=== PATIENT | female | born 1970 | race African-American/Black ===

== ENCOUNTER 2019-05-15 00:39 | Inpatient (IN) ==
[2019-05-15] MEDS ORDERED: ONDANSETRON INJ 2 MG/ML 2 ML VIAL IV STA (01:06)
[2019-05-15] MEDS ORDERED: SODIUM CHLORIDE 0.9% 1000ML 1,000 ML IV ONE ×2 (01:06→02:42)
[2019-05-15 02:42] LABS: Alanine Aminotransferase 19 U/L (12-78); Albumin Level 3.6 gm/dl (3.4-5.0); Aspartate Aminotransferase 32 U/L (15-37); BUN Creatinine Ratio 19.1 (10-20); Blood Urea Nitrogen 26 mg/dl (7-18); Calcium 9.8 mg/dl (8.5-10.1); Carbon Dioxide 27 mmol/L (21-32); Chloride 90 mmol/L (98-107); Creatinine Clr Calc Pharmacy 58.4 ml/min; Est GFR (African American) 54.4; Glucose 175 mg/dl (70-99); Lipase 393 U/L (73-393); Potassium 3.3 mmol/L (3.5-5.1); Sodium 130 mmol/L (136-145)
[2019-05-15 02:51] LABS: Albumin Globulin Ratio 0.8 (0.9-2); Alkaline Phosphatase 74 U/L (45-117); Bilirubin,Total 0.7 mg/dl (0.2-1); Globulin 4.7 gm/dl (2.5-4.0); Total Protein 8.3 gm/dl (6.4-8.2); Troponin I < 0.015 ng/ml (0-0.045)
--- NOTE | 2019-05-15 03:16 | Emergency Department Note ---
History of Present Illness General Chief Complaint: Abdominal Pain Stated Complaint: ABDOMINAL PAIN,VOMITING FOR A WK,FEEL LIKE PASS OU Source: patient Mode of arrival: ambulatory Limitations: no limitations History of Present Illness Provider Complaint: abdominal pain and other (nausea, vomiting, constipation) Onset (ago): 2 week(s) Pain Consistency: constant Location: periumbilical Radiation: none Migration to: no migration Severity: severe Maximum Pain Intensity: 8 Current Pain Intensity: 8 Quality: + sharp Relieved By: + nothing Exacerbated By: + eating, + vomiting and + movement Associated Symptoms: + nausea, + vomiting, + chills and + constipation Treatments prior to arrival: none This 48-year-old female patient presents emergency department today, ambulatory, complaining of nausea, vomiting, abdominal pain as well as constipation for the past 2 weeks. Patient reports lower abdominal pain which she describes as periumbilical. The pain became worse tonight and is associated with intractable vomiting. Patient states she has been able to eat and drink, but very little. Pain is worse with moving or eating and improved somewhat with remaining still. It has been progressively worsening, and became more severe tonight. She has taken no medications for her symptoms. She states she has not had a bowel movement for the past 2 weeks, since the onset of the symptoms. She denies any dysuria, hematuria, urinary frequency, urinary hesitancy, abnormal vaginal bleeding, discharge, chest pain, or dyspnea. The patient states she has been feeling dizzy, lightheaded, and diaphoretic. Last menstrual period was several years ago. She states the pain does cause her to feel somewhat short of breath, but otherwise denies shortness of breath. She denies history of similar pain. Home Medications Home Medications Medication Instructions Recorded Confirmed Type No Known Home Medications 05/15/19 05/15/19 History Allergies Allergy/AdvReac Type Severity Reaction Status Date / Time No Known Allergies Allergy Unverified 05/15/19 02:07 Past Med/Surg History Medical History (Updated 05/16/19 @ 11:48 by Ambrose Britton MD) No pertinent past medical history Septic shock Social History Preferred Language: Croatian Current Living Situation: Other Current Living Situation Comment: unknown Feels Safe at Home: Yes Smoking Status: Unknown if ever smoked Hx Alcohol Use: No (unknown) Hx Substance Use: No (unknown) Review of Systems A total of 10 systems reviewed and were otherwise negative Physical Exam Vital Signs: Vital Signs - 24 hr 05/15/19 00:46 05/15/19 01:41 05/15/19 01:49 Temperature 36.5 C Temperature Source Oral Axillary Pulse Rate 133 H Pulse Rate [Apical ] Pulse Rhythm [Apic al] Pulse Strength [Ap ical] Respiratory Rate 20 Respiratory Effort / Characteristics Respiratory Depth Blood Pressure 127/85 Blood Pressure [Ri ght Arm] Blood Pressure Tamanna n 99 Blood Pressure Tamanna n [Right Arm] Blood Pressure Pos ition [Right Arm] Pulse Oximetry 97 98 Oxygen Delivery Me thod Room Air Sepsis Recent Feve r Within 48 Hours No Sepsis New/Unexpla ined Change in Men susanne Status No Sepsis Action Take n by Nursing No Action Required 05/15/19 02:48 05/15/19 05:00 Temperature Temperature Source Pulse Rate Pulse Rate [Apical ] 119 H 108 H Pulse Rhythm [Apic al] Regular Pulse Strength [Ap ical] Normal Respiratory Rate 20 20 Respiratory Effort / Characteristics Non-Labored Respiratory Depth Normal Blood Pressure Blood Pressure [Ri ght Arm] 132/76 116/75 Blood Pressure Tamanna n Blood Pressure Tamanna n [Right Arm] 94 88 Blood Pressure Pos ition [Right Arm] Lying Pulse Oximetry 98 98 Oxygen Delivery Me thod Room Air Room Air Sepsis Recent Feve r Within 48 Hours Sepsis New/Unexpla ined Change in Men susanne Status Sepsis Action Take n by Nursing Physical Exam: VITALS: Vitals are noted on the nurse's note and reviewed by myself. Vital signs stable. GENERAL: This is a 48-year-old black female, in no acute distress, nondiaphoretic, well-developed well-nourished. SKIN: The skin was without rashes, erythema, edema, or bruising. There is no tenting of the skin. Capillary refill less than 2 seconds. HEAD: Normocephalic atraumatic. EARS: External auditory canals clear, tympanic membranes pearly moreno without erythema or effusion bilaterally. EYES: Pupils equal round and reactive to light and accommodation. Conjunctivae without injection, sclerae without icterus. NOSE: Patent, turbinates without inflammation or discharge. No sinus tenderness. MOUTH: Mucous membranes dry. Tonsils are not enlarged. Pharynx without erythema or exudate. Uvula midline. Airway patent. Tongue does not deviate. NECK: Supple without nuchal rigidity. No lymphadenopathy. HEART: Regular rate and rhythm without murmurs gallops or rubs. LUNGS: Clear to auscultation bilaterally without wheezes, rales or rhonchi. No dullness to percussion. No retractions or accessory muscle use. ABDOMEN: Positive bowel sounds x 4. Normal tympanic percussion. Palpable mass/induration of the abdominal wall approximately 3 cm x 2 cm noted just superior to the umbilicus. No erythema or discharge. No fluctuance. Abdomen was firm and distended. Diffuse tenderness noted. No obvious organomegaly. Diffuse guarding. No rebound tenderness. MUSCULOSKELETAL: No muscle atrophy, erythema, or edema noted. Full range of motion without joint tenderness in all extremities. No tenderness to palpation. Normal gait. Strength 5/5 throughout. NEURO: Patient was alert and oriented to person place and time. No focal neurological deficits. Course The patient was seen and evaluated as above. IV access obtained, labs drawn. Patient was offered analgesics and declined. She was medicated with IV fluids and Zofran. Labs reviewed by myself. Imaging performed and reviewed by myself and radiologist as above. I did receive a phone call from the radiologist notifying me of critical results. I discussed the case with my attending. I discussed the findings with the patient at bedside. She did agree to pain medication at this time. She was medicated with IV morphine and Zosyn. I discussed the case with the surgeon on-call, Dr. Gaytan. He did agree to see and evaluate the patient to take her to the OR. He did ask that we contact the OR. This was done by ED staff. Please see Dr. Gaytan's dictation regarding ongoing management and care of this patient. Administered Medications Discontinued Medications Adenosine (Adenosine) Confirm Administered Dose 6 mg IV .STK-MED ONE Stop: 05/15/19 09:35 Last Admin: 05/15/19 09:40 Dose: 6 mg Documented by: [id number] Adenosine (Adenosine) Confirm Administered Dose 12 mg IV .STK-MED ONE Stop: 05/15/19 09:43 Last Admin: 05/15/19 09:49 Dose: 12 mg Documented by: [id number] Bacitracin (Bacitracin) Confirm Administered Dose 45 appln .ROUTE .STK-MED ONE Stop: 05/15/19 05:12 Last Admin: 05/15/19 08:11 Dose: Not Given Documented by: [id number] Bupivacaine HCl (Marcaine 0.5% Mpf) Confirm Administered Dose 30 ml .ROUTE .STK- MED ONE Stop: 05/15/19 05:12 Last Admin: 05/15/19 08:11 Dose: 14 ml Documented by: [id number] Cisatracurium Besylate (Nimbex) 6.2 mg 0.1 mg/kg (6.2 mg) IV ONCE STA Stop: 05/15/19 08:45 Last Admin: 05/15/19 08:55 Dose: 6.2 mg Documented by: [id number] Fentanyl Citrate (Fentanyl Drip) Confirm Administered Dose 1,250 mcg IV .STK-MED ONE Stop: 05/15/19 08:37 Last Admin: 05/15/19 09:08 Dose: Not Given Documented by: [id number] Sodium Chloride (Nss 1000ml) 1,000 mls @ 999 mls/hr IV .Q1H1M ONE Stop: 05/15/19 02:06 Last Infusion: 05/15/19 02:51 Dose: 0 mls/hr Documented by: [id number] Admin: 05/15/19 01:50 Dose: 999 mls/hr Documented by: [id number] Sodium Chloride (Nss 1000ml) 1,000 mls @ 999 mls/hr IV .Q1H1M ONE Stop: 05/15/19 03:42 Last Infusion: 05/15/19 03:53 Dose: 0 mls/hr Documented by: [id number] Admin: 05/15/19 02:51 Dose: 999 mls/hr Documented by: [id number] Piperacillin Sod/Tazobactam Sod (Zosyn) 3.375 gm in 115 mls @ 230 mls/hr IV NOW STA Stop: 05/15/19 04:41 Last Infusion: 05/15/19 05:03 Dose: 0 mls/hr Documented by: [id number] Admin: 05/15/19 04:30 Dose: 230 mls/hr Documented by: [id number] Metronidazole (Flagyl) 500 mg in 100 mls @ 100 mls/hr IV NOW STA Stop: 05/15/19 06:41 Last Infusion: 05/15/19 08:00 Dose: 0 mls/hr Documented by: [id number] Admin: 05/15/19 06:40 Dose: 100 mls/hr Documented by: [id number] Cisatracurium Besylate 40 mg/ (Sodium Chloride) 100 mls @ 9.24 mls/hr IV .[id number] ZAYNAB; Protocol Stop: 06/14/19 08:49 Last Admin: 05/15/19 15:52 Dose: 1 mcg/kg/min, 9.2 mls/hr Documented by: [id number] Cosigned by: [id number] Titration: 05/15/19 15:52 Dose: 1 mcg/kg/min, 9.2 mls/hr Documented by: [id number] Cosigned by: [id number] Admin: 05/15/19 08:55 Dose: 1 mcg/kg/min, 9.2 mls/hr Documented by: [id number] Cosigned by: [id number] Fentanyl Citrate (Fentanyl Drip) 1,250 mcg in 250 mls @ 10 mls/hr IV .Q24H ZAYNAB; Protocol Stop: 05/29/19 08:40 Last Titration: 05/15/19 11:15 Dose: 50 mcg/hr, 10 mls/hr Documented by: [id number] Titration: 05/15/19 09:39 Dose: 75 mcg/hr, 15 mls/hr Documented by: [id number] Admin: 05/15/19 09:07 Dose: 50 mcg/hr, 10 mls/hr Documented by: [id number] Cosigned by: [id number] Vancomycin HCl 1,750 mg/ (Sodium Chloride) 535 mls @ 200 mls/hr IV NOW ONE; Protocol Stop: 05/15/19 11:40 Last Infusion: 05/15/19 12:33 Dose: 0 mls/hr Documented by: [id number] Admin: 05/15/19 09:38 Dose: 200 mls/hr Documented by: [id number] Propofol (Diprivan) 1,000 mg in 100 mls @ 5.118 mls/hr IV .[id number] ZAYNAB; Protocol Stop: 05/18/19 08:40 Last Titration: 05/15/19 12:11 Dose: 0 mcg/kg/min, 0 mls/hr Documented by: [id number] Admin: 05/15/19 09:06 Dose: 10 mcg/kg/min, 5.1 mls/hr Documented by: [id number] Cosigned by: [id number] Piperacillin Sod/Tazobactam (Sod 3.375 gm/ Dextrose) 115 mls @ 28.75 mls/hr IV Q8H ZAYNAB; Protocol Stop: 05/25/19 08:59 Last Infusion: 05/15/19 14:22 Dose: 0 mls/hr Documented by: [id number] Admin: 05/15/19 09:38 Dose: 28.8 mls/hr Documented by: [id number] Lactated Ringer's (Lr) 1,000 mls @ 125 mls/hr IV .Q8H ZAYNAB Stop: 06/14/19 08:59 Last Infusion: 05/15/19 13:32 Dose: 0 mls/hr Documented by: [id number] Admin: 05/15/19 09:50 Dose: 125 mls/hr Documented by: [id number] Phenylephrine HCl 20 mg/ (Dextrose) 502 mls @ 192.693 mls/hr IV .Q2H37M ZAYNAB; Protocol Stop: 06/14/19 10:59 Last Titration: 05/15/19 14:36 Dose: 0 mcg/kg/min, 0 mls/hr Documented by: [id number] Titration: 05/15/19 14:08 Dose: 2 mcg/kg/min, 256.9 mls/hr Documented by: [id number] Titration: 05/15/19 13:33 Dose: 1.5 mcg/kg/min, 192.7 mls/hr Documented by: [id number] Titration: 05/15/19 13:00 Dose: 1 mcg/kg/min, 128.5 mls/hr Documented by: [id number] Admin: 05/15/19 12:52 Dose: 0.5 mcg/kg/min, 64.2 mls/hr Documented by: [id number] Cosigned by: [id number] Midazolam HCl (Versed) 125 mg in 250 mls @ 4 mls/hr IV .Q24H ZAYNAB; Protocol Stop: 06/14/19 10:59 Last Admin: 05/15/19 11:32 Dose: 2 mg/hr, 4 mls/hr Documented by: [id number] Cosigned by: [id number] Caspofungin 70 mg/ Sodium (Chloride) 260 mls @ 260 mls/hr IV TODAY@1200 ONE Stop: 05/15/19 12:59 Last Infusion: 05/15/19 14:23 Dose: 0 mls/hr Documented by: [id number] Admin: 05/15/19 12:09 Dose: 260 mls/hr Documented by: [id number] Vasopressin 20 units/ Sodium (Chloride) 101 mls @ 12.12 mls/hr IV .Q8H20M ZAYNAB Stop: 06/14/19 13:07 Last Admin: 05/15/19 13:23 Dose: 0.04 unit/min, 12.1 mls/hr Documented by: [id number] Cosigned by: [id number] Phenylephrine HCl 100 mg/ (Dextrose) 510 mls @ 65.255 mls/hr IV .Q7H49M ZAYNAB; Protocol Stop: 06/14/19 13:59 Last Titration: 05/15/19 15:29 Dose: 2.5 mcg/kg/min, 65.3 mls/hr Documented by: [id number] Titration: 05/15/19 15:23 Dose: 2.2 mcg/kg/min, 57.4 mls/hr Documented by: [id number] Titration: 05/15/19 15:09 Dose: 2 mcg/kg/min, 52.2 mls/hr Documented by: [id number] Titration: 05/15/19 15:09 Dose: 2.5 mcg/kg/min, 65.3 mls/hr Documented by: [id number] Admin: 05/15/19 14:34 Dose: 2 mcg/kg/min, 52.2 mls/hr Documented by: [id number] Cosigned by: [id number] Calcium Gluconate 1,000 mg/ (Sodium Chloride) 60 mls @ 240 mls/hr IV ONE ONE Stop: 05/15/19 14:59 Last Infusion: 05/15/19 15:56 Dose: 0 mls/hr Documented by: [id number] Admin: 05/15/19 15:24 Dose: 240 mls/hr Documented by: [id number] Norepinephrine Bitartrate 8 mg (/ Dextrose) 508 mls @ 32.499 mls/hr IV .[id number] [facility]; Protocol Stop: 06/14/19 15:09 Last Titration: 05/15/19 15:25 Dose: 0.1 mcg/kg/min, 32.5 mls/hr Documented by: [id number] Admin: 05/15/19 15:18 Dose: 0.05 mcg/kg/min, 16.3 mls/hr Documented by: [id number] Cosigned by: [id number] Hydrocortisone Sodium (Succinate 100 mg/ Syringe) 2 mls @ 4 mls/min IV ONE ONE Stop: 05/15/19 15:31 Last Admin: 05/15/19 15:45 Dose: 4 mls/min Documented by: [id number] Insulin Aspart (Novolog Flexpen) 0 units SC Q4 ZAYNAB Stop: 06/14/19 11:59 Last Admin: 05/15/19 12:15 Dose: 3 units Documented by: [id number] Cosigned by: [id number] Insulin Glargine (Lantus Solostar Pen) 10 units SC NOW ONE Stop: 05/15/19 12:01 Last Admin: 05/15/19 12:13 Dose: 10 units Documented by: [id number] Cosigned by: [id number] Ioversol (Optiray 320 100ml) 100 ml IV ONCE PRN PRN Reason: Interaction Checking Stop: 05/19/19 03:52 Last Admin: 05/15/19 03:53 Dose: 91 ml Documented by: [id number] Lidocaine HCl (Xylocaine 1% (Local)) Confirm Administered Dose 20 ml .ROUTE .STK-MED ONE Stop: 05/15/19 05:12 Last Admin: 05/15/19 08:12 Dose: 14 ml Documented by: [id number] Midazolam HCl (Versed) Confirm Administered Dose 125 mg .ROUTE .STK-MED ONE Stop: 05/15/19 10:57 Last Admin: 05/15/19 11:19 Dose: Not Given Documented by: [id number] Miscellaneous () Confirm Administered Dose 1 ea .ROUTE .STK-MED ONE Stop: 05/15/19 08:37 Last Admin: 05/15/19 09:21 Dose: 1 ea Documented by: [id number] Morphine Sulfate (Morphine Sulfate) 4 mg IV NOW STA Stop: 05/15/19 04:12 Last Admin: 05/15/19 04:19 Dose: 4 mg Documented by: [id number] Multi-Ingredient Cream (Lacri-Lube) 1 appln OP QS PRN PRN Reason: eye care while paralyzed Stop: 06/14/19 12:39 Last Admin: 05/15/19 12:48 Dose: 1 appln Documented by: [id number] Admin: 05/15/19 12:47 Dose: 1 appln Documented by: [id number] Ondansetron HCl (Zofran) 4 mg IV NOW STA Stop: 05/15/19 01:07 Last Admin: 05/15/19 01:50 Dose: 4 mg Documented by: [id number] Propofol (Diprivan) Confirm Administered Dose 1,000 mg IV .STK-MED ONE Stop: 05/15/19 08:38 Last Admin: 05/15/19 09:21 Dose: Not Given Documented by: [id number] Sodium Bicarbonate (Sodium Bicarbonate 8.4%) Confirm Administered Dose 50 meq .ROUTE .STK-MED ONE Stop: 05/15/19 13:08 Last Admin: 05/15/19 13:18 Dose: 50 meq Documented by: [id number] Sodium Bicarbonate (Sodium Bicarbonate 8.4%) Confirm Administered Dose 100 meq .ROUTE .STK-MED ONE Stop: 05/15/19 15:30 Last Admin: 05/15/19 15:58 Dose: 100 meq Documented by: [id number] Medical Decision Making Differential Diagnosis + peptic ulcer disease, + biliary pathology, + UTI, + obstruction, + mesenteric ischemia, + aortic pathology, + infections, + inflammatory bowel disease, + renal colic, + ectopic (female), + ovarian torsion (female), + tubo- ovarian abscesses (female), + pelvic inflammatory disease (female), + abdominal pain, + appendicitis, + calculus of kidney, + constipation, + diverticulitis, + endometriosis, + gastroenteritis, + pancreatitis and + small bowel obstruction Home Medications Current Medication List: was personally reviewed by me Laboratory Data Attestation: I reviewed the patient's lab results. Mild leukocytosis of 11,000. No anemia, thrombocytopenia. Hepatic function, and electrolytes without significant abnormality. Creatinine mildly elevated. Troponin negative. Lipase normal. Lactate 1.5. Coags normal. Urine test negative. Result diagrams: 05/15/19 10:26 05/15/19 13:09 Lab Results 05/15/19 05/15/19 05/15/19 Range/Units 02:14 02:14 02:34 WBC Cancelled RBC Cancelled Hgb Cancelled Hct Cancelled MCV Cancelled MCH Cancelled MCHC Cancelled RDW Std Deviation Cancelled RDW Coeff of Camila Cancelled Plt Count Cancelled MPV Cancelled Immature Gran % (Auto) Cancelled Neut % (Auto) Cancelled Lymph % (Auto) Cancelled [place] % (Auto) Cancelled Eos % (Auto) Cancelled Baso % (Auto) Cancelled Immature Gran # (Auto) Cancelled Neut # (Auto) Cancelled Lymph # (Auto) Cancelled [place] # (Auto) Cancelled Eos # (Auto) Cancelled Baso # (Auto) Cancelled Absolute Nucleated RBC Cancelled Nucleated RBC % (auto) Cancelled Neutrophils % (Manual) Cancelled Band Neutrophils % Cancelled Lymphocytes % (Manual) Cancelled Prolymphocyte % Cancelled Reactive Lymphs % (Man) Cancelled Monocytes % (Manual) Cancelled Eosinophils % (Manual) Cancelled Basophils % (Manual) Cancelled Metamyelocytes % (Man) Cancelled Myelocytes % (Man) Cancelled Promyelocytes % (Man) Cancelled Blast Cells % (Manual) Cancelled Plasma Cell % (Manual) Cancelled Other Cells % Cancelled Nucleated RBC % Cancelled Neutrophils # (Manual) Cancelled Band Neutrophils # Cancelled Total Absolute Neuts Cancelled Lymphocytes # (Manual) Cancelled Prolymphocyte # Cancelled Reactive Lymphs # Cancelled Total Abs Lymphocytes Cancelled Monocytes # (Manual) Cancelled Eosinophils # (Manual) Cancelled Basophils # (Manual) Cancelled Metamyelocytes # (Man) Cancelled Myelocytes # (Manual) Cancelled Promyelocytes # (Man) Cancelled Blast Cells # (Man) Cancelled Plasma Cell # (Manual) Cancelled Other Cells # Cancelled Nucleated RBCs # (Man) Cancelled Hypersegmented Neuts Cancelled Hyposegmented Neuts Cancelled Hypogranular Neuts Cancelled Large Granular Lymphs Cancelled # Lrg Granular Lymphs Cancelled Hairy Cells Cancelled Smudge Cells Cancelled Toxic Granulation Cancelled Toxic Vacuolation Cancelled Dohle Bodies Cancelled Yi Rods Cancelled Platelet Estimate Cancelled Hypogranular Platelets Cancelled Clumped Platelets Cancelled Giant Platelets Cancelled Platelet Satelliting Cancelled RBC Morphology Cancelled Polychromasia Cancelled Hypochromasia Cancelled Poikilocytosis Cancelled Basophilic Stippling Cancelled Anisocytosis Cancelled Microcytosis Cancelled Macrocytosis Cancelled Spherocytes Cancelled Pappenheimer Bodies Cancelled Sickle Cells Cancelled Target Cells Cancelled Tear Drop Cells Cancelled Ovalocytes Cancelled Stomatocytes Cancelled [place] Bodies Cancelled Echinocytes Cancelled Acanthocytes (Spur) Cancelled Rouleaux Cancelled RBC Agglutinates Cancelled Schistocytes Cancelled RBC Morph Comment Cancelled Sezary Cell Cancelled PT Cancelled INR Cancelled APTT Cancelled PTT Ratio Cancelled Sodium 130 L (136-145) mmol/L Potassium 3.3 L (3.5-5.1) mmol/L Chloride 90 L (98-107) mmol/L Carbon Dioxide 27 (21-32) mmol/L Anion Gap 13.0 H (3-11) BUN 26 H (7-18) mg/dl Creatinine 1.35 H (0.6-1.2) mg/dl Est Cr Clr Drug Dosing 58.4 ml/min Est GFR ( Amer) 54.4 Est GFR (Non-Af Amer) 47.0 BUN/Creatinine Ratio 19.1 (10-20) Glucose 175 H (70-99) mg/dl Lactate (0.4-2.0) mmol/L Calcium 9.8 (8.5-10.1) mg/dl Magnesium 2.0 (1.8-2.4) mg/dl Total Bilirubin 0.7 (0.2-1) mg/dl AST 32 (15-37) U/L ALT 19 (12-78) U/L Alkaline Phosphatase 74 (45-117) U/L Troponin I < 0.015 (0-0.045) ng/ml Total Protein 8.3 H (6.4-8.2) gm/dl Albumin 3.6 (3.4-5.0) gm/dl Globulin 4.7 H (2.5-4.0) gm/dl Albumin/Globulin Ratio 0.8 L (0.9-2) Lipase 393 (73-393) U/L Urine Color Urine Appearance (Clear) Urine pH (4.5-7.5) Ur Specific [place] (1.000-1.030) Urine Protein (Negative) Urine Glucose (UA) (Negative) Urine Ketones (Negative) Urine Blood (Negative) Urine Nitrite (Negative) Urine Bilirubin (Negative) Urine Urobilinogen (Negative) Ur Leukocyte Esterase (Negative) Urine WBC (Auto) (0-5) /hpf Urine RBC (Auto) (0-4) /hpf U Hyaline Cast (Auto) (0-5) /lpf U Epithel Cells (Auto) (0-5) /lpf Urine Bacteria (Auto) (Negative) Urine Yeast POC Ur Test (NEG) 05/15/19 05/15/19 05/15/19 Range/Units 02:34 02:34 03:59 WBC Cancelled 11.11 H RBC Cancelled 5.10 Hgb Cancelled 14.2 Hct Cancelled 41.0 MCV Cancelled 80.4 MCH Cancelled 27.8 MCHC Cancelled 34.6 RDW Std Deviation Cancelled 35.7 L RDW Coeff of Camila Cancelled 12.4 Plt Count Cancelled 313 MPV Cancelled 9.2 Immature Gran % (Auto) Cancelled 0.2 Neut % (Auto) Cancelled 90.3 Lymph % (Auto) Cancelled 5.0 [place] % (Auto) Cancelled 4.4 Eos % (Auto) Cancelled 0.0 Baso % (Auto) Cancelled 0.1 Immature Gran # (Auto) Cancelled 0.02 Neut # (Auto) Cancelled 10.04 H Lymph # (Auto) Cancelled 0.55 L [place] # (Auto) Cancelled 0.49 Eos # (Auto) Cancelled 0.00 Baso # (Auto) Cancelled 0.01 Absolute Nucleated RBC Cancelled Nucleated RBC % (auto) Cancelled Neutrophils % (Manual) Cancelled Band Neutrophils % Cancelled Lymphocytes % (Manual) Cancelled Prolymphocyte % Cancelled Reactive Lymphs % (Man) Cancelled Monocytes % (Manual) Cancelled Eosinophils % (Manual) Cancelled Basophils % (Manual) Cancelled Metamyelocytes % (Man) Cancelled Myelocytes % (Man) Cancelled Promyelocytes % (Man) Cancelled Blast Cells % (Manual) Cancelled Plasma Cell % (Manual) Cancelled Other Cells % Cancelled Nucleated RBC % Cancelled Neutrophils # (Manual) Cancelled Band Neutrophils # Cancelled Total Absolute Neuts Cancelled Lymphocytes # (Manual) Cancelled Prolymphocyte # Cancelled Reactive Lymphs # Cancelled Total Abs Lymphocytes Cancelled Monocytes # (Manual) Cancelled Eosinophils # (Manual) Cancelled Basophils # (Manual) Cancelled Metamyelocytes # (Man) Cancelled Myelocytes # (Manual) Cancelled Promyelocytes # (Man) Cancelled Blast Cells # (Man) Cancelled Plasma Cell # (Manual) Cancelled Other Cells # Cancelled Nucleated RBCs # (Man) Cancelled Hypersegmented Neuts Cancelled Hyposegmented Neuts Cancelled Hypogranular Neuts Cancelled Large Granular Lymphs Cancelled # Lrg Granular Lymphs Cancelled Hairy Cells Cancelled Smudge Cells Cancelled Toxic Granulation Cancelled Toxic Vacuolation Cancelled Dohle Bodies Cancelled Yi Rods Cancelled Platelet Estimate Cancelled Hypogranular Platelets Cancelled Clumped Platelets Cancelled Giant Platelets Cancelled Platelet Satelliting Cancelled RBC Morphology Cancelled Polychromasia Cancelled Hypochromasia Cancelled Poikilocytosis Cancelled Basophilic Stippling Cancelled Anisocytosis Cancelled Microcytosis Cancelled Macrocytosis Cancelled Spherocytes Cancelled Pappenheimer Bodies Cancelled Sickle Cells Cancelled Target Cells Cancelled Tear Drop Cells Cancelled Ovalocytes Cancelled Stomatocytes Cancelled [place] Bodies Cancelled Echinocytes Cancelled Acanthocytes (Spur) Cancelled Rouleaux Cancelled RBC Agglutinates Cancelled Schistocytes Cancelled RBC Morph Comment Cancelled Sezary Cell Cancelled PT INR APTT PTT Ratio Sodium (136-145) mmol/L Potassium (3.5-5.1) mmol/L Chloride (98-107) mmol/L Carbon Dioxide (21-32) mmol/L Anion Gap (3-11) BUN (7-18) mg/dl Creatinine (0.6-1.2) mg/dl Est Cr Clr Drug Dosing ml/min Est GFR ( Amer) Est GFR (Non-Af Amer) BUN/Creatinine Ratio (10-20) Glucose (70-99) mg/dl Lactate 1.5 (0.4-2.0) mmol/L Calcium (8.5-10.1) mg/dl Magnesium (1.8-2.4) mg/dl Total Bilirubin (0.2-1) mg/dl AST (15-37) U/L ALT (12-78) U/L Alkaline Phosphatase (45-117) U/L Troponin I (0-0.045) ng/ml Total Protein (6.4-8.2) gm/dl Albumin (3.4-5.0) gm/dl Globulin (2.5-4.0) gm/dl Albumin/Globulin Ratio (0.9-2) Lipase (73-393) U/L Urine Color Urine Appearance (Clear) Urine pH (4.5-7.5) Ur Specific [place] (1.000-1.030) Urine Protein (Negative) Urine Glucose (UA) (Negative) Urine Ketones (Negative) Urine Blood (Negative) Urine Nitrite (Negative) Urine Bilirubin (Negative) Urine Urobilinogen (Negative) Ur Leukocyte Esterase (Negative) Urine WBC (Auto) (0-5) /hpf Urine RBC (Auto) (0-4) /hpf U Hyaline Cast (Auto) (0-5) /lpf U Epithel Cells (Auto) (0-5) /lpf Urine Bacteria (Auto) (Negative) Urine Yeast POC Ur Test (NEG) 05/15/19 05/15/19 05/15/19 Range/Units 04:10 05:30 05:30 WBC RBC Hgb Hct MCV MCH MCHC RDW Std Deviation RDW Coeff of Camila Plt Count MPV Immature Gran % (Auto) Neut % (Auto) Lymph % (Auto) [place] % (Auto) Eos % (Auto) Baso % (Auto) Immature Gran # (Auto) Neut # (Auto) Lymph # (Auto) [place] # (Auto) Eos # (Auto) Baso # (Auto) Absolute Nucleated RBC Nucleated RBC % (auto) Neutrophils % (Manual) Band Neutrophils % Lymphocytes % (Manual) Prolymphocyte % Reactive Lymphs % (Man) Monocytes % (Manual) Eosinophils % (Manual) Basophils % (Manual) Metamyelocytes % (Man) Myelocytes % (Man) Promyelocytes % (Man) Blast Cells % (Manual) Plasma Cell % (Manual) Other Cells % Nucleated RBC % Neutrophils # (Manual) Band Neutrophils # Total Absolute Neuts Lymphocytes # (Manual) Prolymphocyte # Reactive Lymphs # Total Abs Lymphocytes Monocytes # (Manual) Eosinophils # (Manual) Basophils # (Manual) Metamyelocytes # (Man) Myelocytes # (Manual) Promyelocytes # (Man) Blast Cells # (Man) Plasma Cell # (Manual) Other Cells # Nucleated RBCs # (Man) Hypersegmented Neuts Hyposegmented Neuts Hypogranular Neuts Large Granular Lymphs # Lrg Granular Lymphs Hairy Cells Smudge Cells Toxic Granulation Toxic Vacuolation Dohle Bodies Yi Rods Platelet Estimate Hypogranular Platelets Clumped Platelets Giant Platelets Platelet Satelliting RBC Morphology Polychromasia Hypochromasia Poikilocytosis Basophilic Stippling Anisocytosis Microcytosis Macrocytosis Spherocytes Pappenheimer Bodies Sickle Cells Target Cells Tear Drop Cells Ovalocytes Stomatocytes [place] Bodies Echinocytes Acanthocytes (Spur) Rouleaux RBC Agglutinates Schistocytes RBC Morph Comment Sezary Cell PT 11.2 INR 1.1 APTT 27.3 PTT Ratio 1.0 Sodium (136-145) mmol/L Potassium (3.5-5.1) mmol/L Chloride (98-107) mmol/L Carbon Dioxide (21-32) mmol/L Anion Gap (3-11) BUN (7-18) mg/dl Creatinine (0.6-1.2) mg/dl Est Cr Clr Drug Dosing ml/min Est GFR ( Amer) Est GFR (Non-Af Amer) BUN/Creatinine Ratio (10-20) Glucose (70-99) mg/dl Lactate (0.4-2.0) mmol/L Calcium (8.5-10.1) mg/dl Magnesium (1.8-2.4) mg/dl Total Bilirubin (0.2-1) mg/dl AST (15-37) U/L ALT (12-78) U/L Alkaline Phosphatase (45-117) U/L Troponin I (0-0.045) ng/ml Total Protein (6.4-8.2) gm/dl Albumin (3.4-5.0) gm/dl Globulin (2.5-4.0) gm/dl Albumin/Globulin Ratio (0.9-2) Lipase (73-393) U/L Urine Color Dark Yellow Urine Appearance Clear (Clear) Urine pH 5.5 (4.5-7.5) Ur Specific [place] > 1.045 H (1.000-1.030) Urine Protein 1+ H (Negative) Urine Glucose (UA) Trace H (Negative) Urine Ketones Trace H (Negative) Urine Blood Negative (Negative) Urine Nitrite Negative (Negative) Urine Bilirubin Negative (Negative) Urine Urobilinogen Negative (Negative) Ur Leukocyte Esterase Negative (Negative) Urine WBC (Auto) 10-30 H (0-5) /hpf Urine RBC (Auto) 0-4 (0-4) /hpf U Hyaline Cast (Auto) 10-30 H (0-5) /lpf U Epithel Cells (Auto) >30 H (0-5) /lpf Urine Bacteria (Auto) Negative (Negative) Urine Yeast Not Reportable POC Ur Test NEG (NEG) Imaging Data Radiologist's Impression: CT ABDOMEN & PELVIS With Contrast: Umbilical hernia containing incarcerated/strangulated small bowel loop with fluid in the hernia sac. Associated high grade obstruction of small bowel proximal to the hernia. Foci of pneumoperitoneum suggesting bowel perforation. Mild ascites. Surgical consultation recommended. Liver, gallbladder, spleen, pancreas, adrenal glands, and kidneys are unremarkable. Fibroid uterus. Normal urinary bladder. No acute osseous findings. Radiologist: Vinicius Andujar M.D. ECG Data Attestation: I personally reviewed and interpreted this ECG as follows: Indication: tachycardia Rate (beats per minute): 123 Rhythm: sinus tachycardia Findings: no ST depression, no T-wave inversion, no ST elevation, no acute ischemic change and no ectopy Comparison ECG Date: no prior available Blood Pressure Blood Pressure Findings: Normal blood pressure MDM Narrative This 48-year-old female patient presents for 2 weeks of nausea, vomiting, and constipation. She is now complaining of lower abdominal pain as well as a bulge just above the umbilicus. The patient has been afebrile, but has been tachycardic throughout her stay in the ED. The worsening pain awoke her from sleep overnight. She appeared very dry and dehydrated per labs and lab/nursing staff had difficulty obtaining IV access. She was medicated with IV fluids, Zofran, and ultimately did agree to narcotic pain medication. CT imaging was consistent with a acute incarcerated/strangulated umbilical hernia with high- grade obstruction of the small bowel proximal to the hernia as well as a foci of pneumoperitoneum suggesting perforation. The patient was treated with IV Zosyn. I did consult with the surgeon on-call who agreed to see the patient and take her to the OR for management. Please see surgical dictation regarding ongoing management care of this patient. The chart was completed utilizing [employer] Speech voice recognition software. Grammatical errors, random word insertions, pronoun errors, and incomplete sentences are an occasional consequence of this system due to software limitations, ambient noise, and hardware issues. Any formal questions or concerns about the content, text, or information contained within the body of this dictation should be directly addressed to the provider for clarification. Physician Evaluation Note: I personally evaluated and examined this patient. I agree with assessment and plan of Ariella Dereck PA-C. Pleasant 48 yr old female arrives with abdominal pain found to have incarcerated umbilical hernia with SBO and concern perforation. She is in mild distress about to receive further pain medications. She notes nausea resolved post zofran and awaiting Gen Surg evaluation. She has swelling with TTP over umbilicus consistent with incarcerated umbilical hernia. No attempt at reduction given clear indication for OR and surgeon at bedside shortly. Given IV zosyn as concern for perforated bowel. As surgeon at bedside will defer further management to him. Vitals stable, breathing comfortably and otherwise without complaints besides abdominal discomfort. Saeed Graham MD Impression & Plan Strangulated umbilical hernia, Peritonitis, Bowel perforation Discharge Plan Visit Data Chief Complaint: Abdominal Pain Stated Complaint: ABDOMINAL PAIN,VOMITING FOR A WK,FEEL LIKE PASS OU ED Provider: Saeed Graham ED Midlevel Provider: Ariella Harden Discharge Problem: Strangulated umbilical hernia, Peritonitis, Bowel perforation Patient Disposition: Being Evaluated by Surgeon Condition: Critical Discharge Instructions Interventions: ED Discharge Assessment Last Done: 05/15/19 05:19
[2019-05-15] MEDS ORDERED: IOVERSOL 100ml IV PRN (03:53)
[2019-05-15] MEDS ORDERED: MoRPHine SULFATE 4 MG/ML 1 ML CARP\\VIAL IV STA (04:11)
[2019-05-15] MEDS ORDERED: PIPERACILL/TAZOBAC CONSULT ACTIVE PRN ×2 (04:12→08:36)
[2019-05-15] MEDS ORDERED: PIPERACILLIN/TAZOBACTAM 3.375 GM/115 ML BAG IV STA (04:12)
[2019-05-15 04:20] LABS: Basophils # (auto) 0.01 K/uL (0-0.2); Basophils % (auto) 0.1 %; Hemoglobin 14.2 g/dL (12.0-16.0); Immature Granulocytes # (auto) 0.02 K/uL (0.00-0.02); Immature Granulocytes % (auto) 0.2 %; Lymphocytes # (auto) 0.55 K/uL (1.2-3.4); Mean Corpuscular Hemoglobin 27.8 pg (25-34); Mean Corpuscular Hgb Conc 34.6 g/dL (32-36); Mean Corpuscular Volume 80.4 fL (80-100); Mean Platelet Volume 9.2 fL (7.4-10.4); Monocytes # (auto) 0.49 K/uL (0.11-0.59); Monocytes % (auto) 4.4 %; Neutrophils # (auto) 10.04 K/uL (1.4-6.5); Neutrophils % (auto) 90.3 %; Platelet Count 313 K/uL (130-400); RDW Coefficient of Variation 12.4 % (11.5-14.5); RDW Standard Deviation 35.7 fL (36.4-46.3); White Blood Count 11.11 K/uL (4.8-10.8)
[2019-05-15 04:42] LABS: INR 1.1 (0.9-1.1); Partial Thromboplastin Time 27.3 Seconds (21.0-31.0); Prothrombin Time 11.2 Seconds (9.0-12.0)
[2019-05-15] MEDS ORDERED: BACITRACIN OINT 15 GM TUBE ONE (05:11)
[2019-05-15] MEDS ORDERED: BUPIVACAINE 0.5 % 5 MG/1 ML MPF 30ML VIAL ONE (05:11)
[2019-05-15] MEDS ORDERED: LIDOCAINE HCL 1% 20 ML VIAL ONE (05:11)
--- NOTE | 2019-05-15 05:23 | Surgery Consultation ---
Date of Consultation May 15, 2019 Assessment & Plan (1) Strangulated umbilical hernia: pt is a 48 year-old female who presents to ER with 2 weeks history abdominal pain with constipation, IMP: incarcerated/strangulated umbilical hernia, peritonitis, bowel perforation, Plan, I recommend to do open repair umbilical hernia, possible with mesh, bowel resection, stoma, D/W benefits, risks and alternatives of the surgery, the risks - infection, bleeding, sepsis, multiple organs failure . anastomatic leak, DVT, , pt understood, she agrees with the surgery, I answered all questions, IV fluid, antibiotic, (2) Peritonitis: (3) Bowel perforation: History of Present Illness History of Present Illness History of Present Illness General Chief Complaint: Abdominal Pain Stated Complaint: ABDOMINAL PAIN,VOMITING FOR A WK,FEEL LIKE PASS OU Source: patient Mode of arrival: ambulatory Limitations: no limitations History of Present Illness Provider Complaint: abdominal pain and other (nausea, vomiting, constipation) Onset (ago): 2 week(s) Pain Consistency: constant Location: periumbilical Radiation: none Migration to: no migration Severity: severe Maximum Pain Intensity: 8 Current Pain Intensity: 8 Quality: + sharp Relieved By: + nothing Exacerbated By: + eating, + vomiting and + movement Associated Symptoms: + nausea, + vomiting, + chills and + constipation Treatments prior to arrival: none This 48-year-old female patient presents emergency department today, ambulatory, complaining of nausea, vomiting, abdominal pain as well as constipation for the past 2 weeks. Patient reports lower abdominal pain which she describes as periumbilical. The pain became worse tonight and is associated with intractable vomiting. Patient states she has been able to eat and drink, but very little. Pain is worse with moving or eating and improved somewhat with remaining still. It has been progressively worsening, and became more severe tonight. She has taken no medications for her symptoms. She states she has not had a bowel movement for the past 2 weeks, since the onset of the symptoms. She denies any dysuria, hematuria, urinary frequency, urinary hesitancy, abnormal vaginal bleeding, discharge, chest pain, or dyspnea. The patient states she has been feeling dizzy, lightheaded, and diaphoretic. Last menstrual period was several years ago. She states the pain does cause her to feel somewhat short of breath, but otherwise denies shortness of breath. She denies history of similar pain. I ( Sandra Gaytan MD) I got a call for consult this pt, I reviewed pt' s H/P , labs, CT scan with pt, I agree above history. Allergies Allergy/AdvReac Type Severity Reaction Status Date / Time No Known Allergies Allergy Unverified 05/15/19 02:07 Home Medications Home Medications Medication Instructions Recorded Confirmed Type No Known Home Medications 05/15/19 05/15/19 History Patient History Medical History No pertinent past medical history Social History Preferred Language: Malagasy Feels Safe at Home: Yes Smoking Status: Never smoker Review of Systems Constitutional: as per Subjective / HPI Ear, Nose, Mouth, Throat: as per Subjective / HPI Respiratory: as per Subjective / HPI Cardiovascular: as per Subjective / HPI Gastrointestinal: pt has known - she has umbilical hernia for 4-5 years Genitourinary: as per Subjective / HPI Musculoskeletal: as per Subjective / HPI Integumentary: as per Subjective / HPI Neurologic: as per Subjective / HPI Psychiatric: as per Subjective / HPI Endocrine: as per Subjective / HPI Hematologic / Lymphatic: as per Subjective / HPI Allergy / Immunological: as per Subjective / HPI no known allergies Physical Exam Constitutional: WD/WN, vitals as above well developed, well nourished and + acute distress Eyes: PERRL, conjunctivae normal, anicteric sclerae ENMT: external ear and nose normal, oropharynx normal Neck: trachea midline, no thyromegaly Respiratory: normal respiratory effort, lungs clear to auscultation normal respiratory effort Cardiovascular: RRR, no murmur, no edema Rate/Rhythm: regular rate, regular rhythm and + tachycardic Heart Sounds: normal S1 and normal S2 Gastrointestinal (Abdomen): Percussion/Palpation: + abdomen tender, + guarding, + abdomen rigid and + hernia bulging on umbilical area, with skin color -redness, tenderness, , umbilical hernia is not reducible, size 8x10cm bulging mass on umbilical area, tenderness with rebound pain on whole abdomen, mild distend, BS -. Musculoskeletal: no cyanosis or clubbing, extremities motor strength 5/5 Skin: red color skin on umbilical area, size about 8x10cm, Neurologic: patellar DTR's 2+ bilat, sensation intact Psychiatric: A+Ox3, euthymic affect Orientation: alert and oriented x 3 Lymphatic: no cervical or axillary lymphadenopathy Results & Data Vital Signs (Past 12 Hours) Vital Signs Temp Pulse Pulse Resp BP BP Pulse Ox 05/15/19 05:00 108 H 20 116/75 98 05/15/19 02:48 119 H 20 132/76 98 05/15/19 01:49 98 05/15/19 01:41 36.5 C 05/15/19 00:46 133 H 20 127/85 97 Laboratory Results Abnormal lab results 05/15/19 05/15/19 Range/Units 02:14 03:59 WBC 11.11 H (4.8-10.8) K/uL RDW Std Deviation 35.7 L (36.4-46.3) fL Neut # (Auto) 10.04 H (1.4-6.5) K/uL Lymph # (Auto) 0.55 L (1.2-3.4) K/uL Sodium 130 L (136-145) mmol/L Potassium 3.3 L (3.5-5.1) mmol/L Chloride 90 L (98-107) mmol/L Anion Gap 13.0 H (3-11) BUN 26 H (7-18) mg/dl Creatinine 1.35 H (0.6-1.2) mg/dl Glucose 175 H (70-99) mg/dl Total Protein 8.3 H (6.4-8.2) gm/dl Globulin 4.7 H (2.5-4.0) gm/dl Albumin/Globulin Ratio 0.8 L (0.9-2) Diagnostic Findings CT scan- incarcerated/ strangulated umbilical hernia with small bowel obstruction, foci of pneumoperitoneum, suggesting perforation of bowel,
[2019-05-15] MEDS ORDERED: ePHEDrine sulfate 50 MG/ML AMP IV PRN (05:42)
[2019-05-15] MEDS ORDERED: ATROPINE SULFATE 0.1 MG/ML 10ML SYR IV PRN (05:42)
[2019-05-15] MEDS ORDERED: ONDANSETRON INJ 2 MG/ML 2 ML VIAL IV PRN (05:42)
[2019-05-15] MEDS ORDERED: HYDROmorphone INJ 2 MG/ML SYR/VIAL IV PRN (05:42)
[2019-05-15] MEDS ORDERED: fentaNYL citrate 100 MCG/2 ML VIAL IV PRN (05:42)
[2019-05-15] MEDS ORDERED: metroNIDAZOLE 500 MG/100 ML BAG IV STA ×2 (05:42→05:47)
[2019-05-15] MEDS ORDERED: PROMETHAZINE HCL 6.25 MG in SODIUM CHLORIDE 0.9% 50 ML IV PRN (05:42)
--- NOTE | 2019-05-15 05:42 | History & Physical Bridge Note ---
Date of Service May 15, 2019 History & Physical Bridge Note I have examined the patient, reviewed the History & Physical and in the interval since the performance of the History & Physical I have noted the following changes of clinical significance: no changes noted
--- NOTE | 2019-05-15 05:54 | Anesthesiology Consultation ---
Date of Service May 15, 2019 Assessment & Plan (1) Encounter for pre-operative examination: Chart Review Chart Review: Acceptable Risk for Surgery and Patient NOT seen in Pre Admission Testing Consults Requested none ASA [id number] Proposed Anesthesia Anesthesia Type: General Risk / Benefits Reviewed With: PT / POA / Parent / Guardian, Accepts Plan and Informed Consent Obtained History Surgery Operation Date: 05/15/19 05:45 Proposed Procedures p Umbilical Hernia Repair - Sandra Gaytan MD Height/Weight Height: 5 ft 7 in Weight: 85.3 kg Allergies Allergy/AdvReac Type Severity Reaction Status Date / Time No Known Allergies Allergy Unverified 05/15/19 02:07 Medications Home Medications Medication Instructions Recorded Confirmed Last Taken No Known Home Medications 05/15/19 05/15/19 Unknown Active Medications Generic Name Dose Route Start Last Admin Trade Name Freq PRN Reason Stop Dose Admin Ioversol 100 ml 05/15/19 03:53 05/15/19 03:53 Optiray 320 100ml IV 05/19/19 03:52 91 ml ONCE PRN Administration Interaction Checking NPO Date Last Intake of Fluids: 05/14/19 Time Last Intake of Fluids: 11:00 Date Last Intake of Solids: 05/14/19 Time Last Intake of Solids: 10:00 Past Medical History Medical History No pertinent past medical history Exercise / Class Metabolic Activity II 4-5 Yardwork/Stairs/Walk up hill Past Anesthesia History No Hx of Anesthesia Complications and No Family Hx of Anesthesia Complications History of PONV No Hx of PONV and No Hx of Motion Sickness Social History Smoking Status: Never smoker Physical Exam Vital Signs Last Vital Signs Temp 36.5 C 05/15/19 01:41 Pulse 108 H 05/15/19 05:00 Resp 20 05/15/19 05:00 BP 116/75 05/15/19 05:00 Pulse Ox 98 05/15/19 05:00 ENMT Mouth: no dentition abnormality Thyromental Distance: > or= 3.5 Finger Breadths Mallampati Class: II Neck normal visual inspection Respiratory normal respiratory effort Auscultation: lungs clear to auscultation bilaterally Cardiovascular Rate/Rhythm: regular rate and regular rhythm Psychiatric Orientation: alert Testing Laboratory Results 05/15/19 03:59 05/15/19 02:14 PT 11.2 Seconds (9.0-12.0) 05/15/19 04:10 INR 1.1 (0.9-1.1) 05/15/19 04:10 APTT 27.3 Seconds (21.0-31.0) 05/15/19 04:10 05/15/19 05:30 POC Ur Test NEG Electrocardiogram Date: 05/15/19 Findings: + ST @
[2019-05-15] MEDS ORDERED: fentaNYL citrate 100 MCG/2 ML VIAL ONE (05:58)
[2019-05-15 06:43] LABS: Appearance Urine Clear (Clear); Bacteria Urine Automated Negative (Negative); Bilirubin Urine Negative (Negative); Blood Urine Negative (Negative); Color Urine Dark Yellow; Epithelial Cell Urine Auto >30 /lpf (0-5); Glucose Urine UA Trace (Negative); Ketones Urine Trace (Negative); Leukocyte Esterase Urine Negative (Negative); Nitrite Urine Negative (Negative); Protein Urine 1+ (Negative); RBC Urine Automated 0-4 /hpf (0-4); Specific Gravity Urine > 1.045 (1.000-1.030); Urobilinogen Urine Negative (Negative); pH Urine 5.5 (4.5-7.5)
--- NOTE | 2019-05-15 06:54 | XRay Report ---
XR chest 1V portable CLINICAL HISTORY: abdominal pain COMPARISON STUDY: No previous studies for comparison. FINDINGS: The cardiac and mediastinal contours are normal. There is no evidence of focal pulmonary co nsolidation. There is no evidence of failure. No pleural effusions are visualized.[There are minimal left basilar atelectatic changes. There is an equivocal sliver of free intraperitoneal air. IMPRESSION: 1. Equivocal sliver of free intraperitoneal air 2. No evidence of focal pulmonary consolidation Electronically signed by: Sai French M.D. 05/15/2019 6:53 AM
[2019-05-15] MEDS ORDERED: ROCURONIUM BROMID 50MG/5ML SYR ONE ×2 (07:30→08:36)
[2019-05-15] MEDS ORDERED: PROPOFOL IV EMULSION 10 MG/ML 20 ML VIAL IV ONE (07:30)
[2019-05-15] MEDS ORDERED: LIDOCAINE 2% 20 MG/ML 5 ML SYR IV ONE (07:31)
--- NOTE | 2019-05-15 07:37 | CT Scan Report ---
CT abd pelvis oral and IV con CLINICAL HISTORY: 48 years-old Female presenting with abdominal pain, constipation, palpable mass. TECHNIQUE: Multidetector CT of the abdomen and pelvis was performed after the administration of oral and intravenous contrast. IV contrast: 91 mL of Optiray 320. One or more dose lowering techniques wer e used consistent with the principles of ALARA (as low as reasonably achievable), including automatic exposure control, mA or kV adjustment to individual patient size, and/or use of iterative reconstruc tion. COMPARISON: None. CT DOSE (mGy.cm): The estimated cumulative dose is 803.69 mGy.cm. FINDINGS: Cable Cutter And Swager topogram: Unremarkable. Lung bases: Normal heart size. No pericardial or pleural effusion. No focal infiltrate or nodule at t he lung bases. Liver: Normal morphology. No liver lesion. Patent hepatic vasculature. Biliary: No intrahepatic or extrahepatic biliary ductal dilatation. Normal gallbladder. Pancreas: Normal. Spleen: Normal. Adrenal glands: Normal. Kidneys and ureters: Normal. No hydronephrosis. Bladder: Incompletely evaluated secondary to underdistention. Mass effect on the bladder secondary to the enlarged uterus. Pelvic organs: Multilobular enlarged uterus with multiple fibroids evidence, some degenerated and efe cified. Significant surrounding mass effect on pelvic structures due to the degree of enlargement of the uterus. The ovaries are not well depicted. Bowel: Large bowel is decompressed. The appendix is normal. Severely dilated proximal small bowel to the level of a small bowel containing umbilical hernia. The herniated short segment of small bowel proctor s mild wall thickening and hyperenhancement of the wall. There is associated fluid in the hernia sac as well as fat infiltration. There is a focal downstream transition point at the site. Remainder of d istal small bowel is decompressed. No upstream transition point to suggest a closed loop obstruction. Peritoneal cavity: Intraloop fluid is evident with perienteric fat infiltration. Significant upper ab dominal pneumoperitoneum consistent with hollow viscus perforation. Lymph nodes: No enlarged lymph nodes in the abdomen or pelvis. Vasculature: Aorta and IVC patent and normal in caliber. Abdominal wall: Normal. Musculoskeletal: Normal. IMPRESSION: 1. Free air in the upper abdomen consistent with hollow viscus perforation. Evidence of a complete s mall bowel obstruction secondary to a small bowel containing umbilical hernia. Given the appearance o f the herniated small bowel loop and associated fluid and infiltrative change, strangulation of the b owel loop is suspected. Surgical consultation is required. 2. Fibroid uterus. These findings were discussed with physician bakery assistant Ariella by Dr. Andujar on 05/15/2019 4:07 AM. Electronically signed by: Jean Paul Pitts M.D. 05/15/2019 7:35 AM
--- NOTE | 2019-05-15 07:38 | Communication Note ---
Date of Service: May 15, 2019 I evaluated the patient in the holding area. She denied any nausea or vomiting. RSI was planned for induction and intubation. Immediately following dosing with propofol and succinylcholine, the patient had large volume emesis from mouth and nares. She was suctioned and intubated. Prior to positive pressure ventilation, an NGT was passed through the ETT and suctioned for scant bilious material. At this point, her lungs were recruited and she was placed on mechanical ventilation while a fiberoptic scope was prepared. In several rounds, each lobe and subsegmental bronchus was suctioned under fiberoptic guidance and lavaged with saline. Bronchial mucosa was pink and healthy appearing. There was yellow stomach contents visible in the trachea proximal to the ETT balloon. An NGT was placed in the stomach and suctioned for ~1L of yellow/brown material. Plan is for patient to remain intubated post-op to facilitate further bronchioalveolar lavage if necessary in the ICU.
[2019-05-15] MEDS ORDERED: ALBUMIN HUMAN 5% 12.5 GM/250 ML VIAL IV ONE (07:47)
[2019-05-15] MEDS ORDERED: ALBUTEROL HFA INHALER 8.5 GM ONE (08:02)
--- NOTE | 2019-05-15 08:15 | Post Operative Brief Note ---
Immediate Post Op Note v1 Date of Surgery May 15, 2019 Pre & Post Diagnosis Operation Date: 05/15/19 05:45 Pre-Op Diagnosis: Strangulated umbilical hernia, small bowel obstruction bowel perforation, peritonitis Post-Op Diagnosis: Strangulated umbilical hernia, small bowel obstruction,small bowel perforation, peritonitis, sepsis I identified the patient and participated in the time-out.: Yes Procedure Operation Date: 05/15/19 05:45 Actual Procedures p Exploratory Laparotomy, Open Umbilical Hernia Repair, Partial Small Bowel Resection - Sandra Gaytan MD Surgeon Sandra Gaytan MD Customer Complaint Service Supervisor SAVANNAH Raymond Estimated Blood Loss 30 Findings Consistent with Post-Op Diagnosis strangulated umbilical hernia, small bowel perforation, small bowel obstruction, peritonitis Fluids 2000ml Specimens partial small bowel with hernia sac Drains Carlos-Joseph Drain (10Fr. Flat X2) Anesthesia Type General Complications none Disposition Accompanied Patient To Recovery: Yes Disposition: Surgical ICU Overlapping Procedure I was immediately available: during the entire case.
[2019-05-15] MEDS ORDERED: RAPID SEQUENCE INDUCTION BAG ONE (08:36)
[2019-05-15] MEDS ORDERED: VANCOMYCIN CONSULT ACTIVE PRN (08:36)
[2019-05-15] MEDS ORDERED: PROPOFOL IV EMULSION 10 MG/ML 100 ML VIAL IV ONE (08:37)
[2019-05-15] MEDS ORDERED: PROPOFOL 1,000 MG/100 ML VIAL IV SCH (08:41)
[2019-05-15] MEDS ORDERED: fentaNYL DRIP 1,250 MCG/250 ML BAG IV SCH (08:41)
[2019-05-15] MEDS ORDERED: CISATRACURIUM BESYLATE IV SOLN 2 MG/ML 10 ML VIAL IV STA (08:44)
[2019-05-15] MEDS ORDERED: LACTATED RINGER'S 1,000 ML IV SCH ×2 (08:45→09:00)
[2019-05-15] MEDS ORDERED: HYDROmorphone INJ 0.5 MG/0.5 ML SYR IV PRN (08:46)
[2019-05-15] MEDS ORDERED: FENTANYL BOLUS FROM BAG IV PRN (08:46)
[2019-05-15 08:53] LABS: iSTAT Arterial Blood Gas HCO3 23 meg/L (19-24); iSTAT Arterial Blood Gas pCO2 53 mmHg (35-46); iSTAT Arterial Blood Gas pH 7.23 (7.35-7.45); iSTAT Arterial Blood Gas pO2 40 mmHg (80-95); iSTAT Carbon Dioxide 24 mEq/l (24-31); iSTAT FiO2 100 %; iSTAT Site Art Line
[2019-05-15] MEDS: CISATRACURIUM BESYLATE 40 MG in 0.9 % SODIUM CHLORIDE 80 ML IV SCH ×2 (08:55→15:52)
--- NOTE | 2019-05-15 08:56 | XRay Report ---
XR chest 1V portable CLINICAL HISTORY: 48 years-old Female presenting with intubation on vent. TECHNIQUE: Portable supine AP view of the chest was obtained. COMPARISON: 05/15/2019 at 1:22 AM. FINDINGS: There has been interval intubation with the endotracheal tube terminating over 4 cm from the emily. Nasogastric tube descends below the diaphragm terminating in the gastric fundus. Cardiac mediastinal silhouette normal. Extensive dense lung opacities bilaterally anomaly affecting the central to upper lungs more dense on the left. No large effusion. Thickening of the right paratracheal stripe. No pneu mothorax. Osseous structures normal. Upper abdomen normal. IMPRESSION: 1. Appropriately positioned tubes. 2. Bilateral dense pulmonary infiltrates in the mid to upper lungs concerning for multifocal pneumon ia or diffuse alveolar damage. 3. Thickening of the right paratracheal stripe could relate to underlying lymphadenopathy. Attention on follow-up. Consider chest CT. Electronically signed by: Jean Paul Pitts M.D. 05/15/2019 8:55 AM
[2019-05-15] MEDS ORDERED: VANCOMYCIN HCL 1,750 MG in SODIUM CHLORIDE 0.9% 500 ML IV ONE (09:00)
[2019-05-15] MEDS ORDERED: PIPERACILLIN/TAZOBACTAM 3.375 GM in DEXTROSE 5% 100 ML IV SCH (09:00)
--- NOTE | 2019-05-15 09:20 | Anesthesiology Progress Note ---
Date of Service May 15, 2019 Anesthesia Post Procedure Vital Signs Vital Signs: Temp Pulse Pulse Resp BP BP Pulse Ox 05/15/19 05:00 108 H 20 116/75 98 05/15/19 02:48 119 H 20 132/76 98 05/15/19 01:49 98 05/15/19 01:41 36.5 C 05/15/19 00:46 133 H 20 127/85 97 Pain Intensity Abdomen: Pain Intensity: 5 Notes Mental Status: see notes below Patient Amnestic to Procedure: Yes Nausea / Vomiting: adequately controlled Airway Patency, RR, SpO2: see Notes below BP & HR: see Notes below Hydration State: see Notes below Anesthetic Complications: see Notes below Notes: The patient is a 48 y/o status post repair of an incarcerated hernia and small bowel obstruction. Dr. Juarez was the anesthesiologist at the start of the procedure and gave sign out to me at 0715. According to Dr. Juarez the patient aspirated upon induction. He immediately intubated her. He placed a nasogastric tube and suctioned out over one liter of brown fluid. He then used a fiberoptic bronchoscope to suction out and lavage the patient's lungs. The patient's SpO2 was in the 90s at this time and she was tachycardic but maintaining her SBP in the 120s. Carie, the BUN PANNER came in at 0700. Dr. Juarez again used a fiberoptic bronchoscope and lavaged the lungs. The patient's SpO2 briefly dropped to the 80s, but then came back up to the mid 90s. At this point I came to the room and was given sign out. Dr. Juarez gave Dr. Britton report on the patient. Carie monitored the patient over the next thirty minutes. The patient's SBP dropped to the 100s and her SpO2 dropped to the high 80s. At around 0740 I was called by Carie back to the room. The patient's SpO2 was 87 on 100% FiO2 with Peep of 5. The lungs were auscultated and rhonchi was heard bilaterally. The patient's ETT was suctioned and albuterol was given in the ETT. The patient was manually ventilated then placed back on the ventilator with peep increased to 10. Her SpO2 improved to 90. A L radial arterial line was placed. She was started on a low phenylephrine gtt and albumin was given in addition to crystalloid. Dr. Gaytan completed the surgery. Dr. Britton and the ICU was notified of the patient and a ventilator was set up for the patient. The patient was transported intubated on full monitors and Ambu bag with oxygen and a Peep valve to the ICU. SpO2 was in the high 80s during transport. Dr. Britton was present upon the patient's arrival and she was immediately placed on the ventilator. A full sign out was given and he took over management of her care. The patient was initially placed on the ventilator and her SpO2 went down to the 60s. She was then manually ventilated SpO2 came up to the 70s. The patient was placed prone and SpO2 is now in the 90s. She has remained tachycardic and has been weened off of pressors with SBP in the 130s.
[2019-05-15 09:24] LABS: iSTAT Arterial Blood Gas HCO3 21 meg/L (19-24); iSTAT Arterial Blood Gas pCO2 51 mmHg (35-46); iSTAT Arterial Blood Gas pH 7.22 (7.35-7.45); iSTAT Arterial Blood Gas pO2 108 mmHg (80-95); iSTAT Carbon Dioxide 22 mEq/l (24-31); iSTAT FiO2 100 %; iSTAT Site Art Line
[2019-05-15] MEDS ORDERED: ADENOSINE IV SOLN 3 MG/ML 2 ML VIAL IV ONE ×2 (09:34→09:42)
[2019-05-15 09:38] LABS: Albumin Level 2.6 gm/dl (3.4-5.0); BUN Creatinine Ratio 21.3 (10-20); Calcium 8.4 mg/dl (8.5-10.1); Creatinine Clr Calc Pharmacy 73.7 ml/min; Est GFR (African American) 72.1; Est GFR (Non-African American) 62.2; Potassium 3.7 mmol/L (3.5-5.1)
[2019-05-15 09:42] LABS: Albumin Globulin Ratio 0.8 (0.9-2); Globulin 3.2 gm/dl (2.5-4.0); Total Protein 5.8 gm/dl (6.4-8.2)
[2019-05-15] MEDS ORDERED: PHENYLEPHRINE HCL 10 MG/ML VIAL ONE (10:00)
--- NOTE | 2019-05-15 10:06 | Critical Care Consultation ---
Date of Consultation May 15, 2019 Assessment & Plan (1) Admitted to intensive care unit: Reason Critically Ill: 48-year-old female here for aspiration event during rapid induction for emergent ex lap secondary to bowel perforation resulting in severe sepsis with ARDS. No significant past medical history Neuro: -CAM ICU: POSITIVE -Chemically sedated and paralyzed for intubation Cardiac: Hypotension Secondary to severe sepsis. Required increasing pressor support throughout her time in [facility]. Was on 3 pressors, vasopressin, phenylephrine, norepinephrine at time of transfer to [facility]. -IJ was placed for administration of pressors Respiratory: ARDS Clinical history, physical exam findings, and imaging studies were all consistent with acute respiratory distress syndrome. Patient arrived to the ICU with oxygen saturation in the low 80s and downtrending. Various ventilator strategies were used in attempt to increase her oxygenation status. Eventually she was prone and, placed on 100% FiO2 to maintain her oxygen saturations. Beni pite our best efforts we were unable to adequately maintain her oxygenation and blood pressure at this institution, she was transferred to [facility] for escalation of care. -Given 100 mg of hydrocortisone prior to transfer GI: -NPO diet Strangulated umbilical hernia See subjective. Arrived to the ICU status post vancomycin washout. In the ICU she was started on Zosyn and vancomycin. She failed to improve clinically sick caspofungin was started as well to cover for potential fungemia secondary to perforated bowel. RENAL/LYTES: MALAIKA with concern for progression to ARF On admission patient's creatinine was 1.07, postoperatively it was 1.54, repeat later that day was 1.76. Given the patient's worsening clinical status and increasing hypotension. There was a concern that her creatinine would continue to rise, and she made progress from MALAIKA to ARF. She will require CRRT at an outside facility : - No concerns at this time. ENDO: - No concerns at this time. HEME: - Stable H&H. ID: Severe sepsis secondary to bowel perforation: Patient presented the ICU meeting criteria for severe sepsis. A white blood cell count obtained just prior to the procedure was 11.11, upon arrival to the ICU a repeat white count was 0.65. She was also demonstrating tachycardia, hypotension, febrile, tachypnea/inability to oxygenate, extremely depressed white count. She was treated aggressively with fluid rehydration, pressor support, started on vancomycin and Zosyn. She failed to improve status post initiation of antibiotics so a antifungal was added to cover for potential fungemia. Blood, abdomen, sputum cultures were obtained results are pending INTEGUMENTARY: -No concerns at this time LINES/IV ACCESS: -PIVs intact. -Central line in place -IO was placed and subsequently removed when central line access was obtained DVT PROPHYLAXIS: -lovenox Dispo: Transfer to [facility] for escalation of medical care Thank you for allowing us to be part of this patient's care. Please refer to Dr. Britton's documentation for any further recommendations. (2) Severe sepsis: (3) Bowel perforation: (4) Peritonitis: (5) Strangulated umbilical hernia: (6) ARDS (adult respiratory distress syndrome): (7) Hypoxia: (8) Hypotension: (9) Aspiration into airway: (10) Aspiration pneumonia: (11) Septic shock: Supervising Physician Co-Signing Physician Notes Dr. Burnett was the resident-physician during care of patient. I separately evaluated patient for holt portions of the history and the exam. I was present during the critical portion of medical decision making, and I discussed the case with the resident. I generally agree with the findings and plan except for any additions/exceptions noted. Patient presented to the hospital with abdominal complaints for the past 2 weeks and was found to have an incarcerated hernia with peritonitis. Apparently, as she was being induced for intubation she developed severe emesis and had a massive aspiration event per anesthesia. They successfully intubated her and placed an NG tube and try to suction as much contents as a code from the airway in the esophagus. They then performed a bronchial washing of the bilateral lungs with improvement of oxygenation and airway clearance. Subsequent to this, the surgeon proceeded with a laparotomy and resection of 10 cm of small intestine. I am told by the surgeon that there was a very large amount of pus found in the peritoneal cavity. He was able to successfully close the abdomen and left to ANIL drains in place. On arrival to the ICU she was found to be profoundly hypoxemic with sats of 65% on the monitor on 100% FiO2 and a PEEP of 10. I then increased her PEEP to 26 with minimal improvement. We then bagged her for period of time and given the lack of improvement, we elected to prolong the patient. After approximately 10 minutes pronating the patient's sats impro zoya to the high 90s. We were able to wean down the FiO2 and PEEP a bit. After a couple of hours on the settings she became hypotensive and it was clear that she was going to septic shock. At this point she was already on antibiotics including vancomycin, Zosyn and capsofungin. I did call [facility] after the initial denis to notify them of the situation. We did discuss ECMO and at that time given that she was relatively stable the decision was to follow-up in the afternoon. Regardless, [facility] did not have any beds available at that time. Later in the afternoon I was informed that a bed would soon be available and that she was accepted for transfer for ECMO and further modalities of treatment which will likely require CRRT. She continues to be profoundly hypotensive now on vasopressin, phenylephrine and the addition of Levophed. I am also giving her stress dose steroids. Her prognosis is extremely guarded and her condition is gravely ill at this time. Continues to be persistently acidotic and now has a mixed respiratory and metabolic acidosis. She has oliguric and going to further renal failure. All of these findings and plan of care was discussed at bedside with the patient's sister and [id number]. They are agreeable with the plan of care. I have personally spent 120 minutes of critical care time in the direct management of this patient. This is a life/limb threatening event. This includes time spent evaluating patient, direct bedside care, chart review, placing orders, interpretation of diagnostic studies, discussion with consultants, patient, and/or family members regarding treatment decisions, as well as other required patient management activities. This time is exclusive of all separately billable procedures, and teaching time and separate from and in addition to any other critical care service time. History of Present Illness Attending Physician: Sandra Gaytan MD History of Present Illness 48-year-old female with no significant past medical history of presented to the emergency department on 05/14 with complains of nausea, vomiting, abdominal pain in addition to constipation for the past 2 weeks. Patient reported lower abdominal pain in the periumbilical region and was associated with intractable vomiting. She reported the pain is was worse with moving or eating and improved somewhat with remaining still. It is been progressively worsening and reached climax on the evening of 05/14. She reported she had not had a bowel movement for the past 2 weeks since the onset of symptoms. On admission she denied dysuria, hematuria, urinary frequency, urinary hesitancy, abnormal vaginal bleeding, discharge, chest pain, or dyspnea. She was tachycardic in the emergency department, clinically appeared dry, labs obtained in the emergency department were pertinent for a white count of 11.11, hemoglobin of 14.2, sodium of 130, potassium of 3.3, creatinine of 1.35, glucose of 175. CT of the abdomen pelvis was obtained and was consistent with acute incarcerated & strangulated umbilical hernia with high-grade obstruction of the small bowel proximal to the hernia as well as a foci pneumoperitoneum suggesting perforation. Patient was administered IV Zosyn and surgery was consulted. Surgery recommended emergent ex lap with possible bowel resection and possible ostomy. Patient was rushed to the OR for the procedure, unfortunately at the time of induction the patient had an aspiration event aspirating gastric contents into her lungs. Ultimately intubation was successful and the procedure was performed. She was found to have incarcerated umbilical hernia containing necrotic small bowel with small bowel perforation x2 with purulent peritonitis. Small bowel resection was performed abdominal washout with 1 L of saline with vancomycin. Throughout the procedure O2 sats continued to drop to the low 80s near completion of the procedure. ICU team was consulted for further evaluation and management. She was transferred to the ICU intubated. Chest x-ray was concerning for ARDS in the setting of sepsis. Her O2 sats continued to drop in the ICU, and she was placed in the prone position. Her oxygen saturation recovered in the prone position however her she continued to become increasingly hypotensive. Her she was contacted for recommendations regarding transfer. Decision was made to transfer the patient to [place] for escalation of care. Allergies Allergy/AdvReac Type Severity Reaction Status Date / Time No Known Allergies Allergy Unverified 05/15/19 02:07 Home Medications Home Medications Medication Instructions Recorded Confirmed Type No Known Home Medications 05/15/19 05/15/19 History Patient History Medical History (Reviewed 05/16/19 @ : by Alirio Burnett MD) No pertinent past medical history Social History (Reviewed 05/16/19 @ : by Alirio Burnett MD) Preferred Language: Turkmen Current Living Situation: Other Current Living Situation Comment: unknown Feels Safe at Home: Yes Smoking Status: Unknown if ever smoked Hx Alcohol Use: No (unknown) Hx Substance Use: No (unknown) Physical Exam Physical Exam: General: Middle-aged female in acute distress, meeting septic criteria and hypoxic HEENT: Normocephalic atraumatic, bilateral eyes open Neck: Normal to visual inspection, I did not appreciate thyromegaly, trachea midline Cardiac: Tachycardic with regular rhythm. I did not appreciate significant murmurs, rubs, gallops, did not appreciate significant pedal edema. Respiratory: Coarse breath sounds bilaterally, intubated, unable to ventilate herself. GI: [address], distended MSK: Moves all extremities, subsequently administered paralytics Skin: Surgical site, clean, dry, intact. Feculent matter throughout her abdomen Neuro: Sedated and paralyzed with medications Results & Data Vital Signs (Past 12 Hours) Vital Signs Temp Pulse Pulse Resp BP BP BP 05/15/19 09:23 37.4 C 124 H 19 143/101 H 05/15/19 09:10 38.2 C H 144 H 29 H 144/118 H 136/77 05/15/19 09:04 37.5 C 138 H 29 H 139/91 107/62 05/15/19 09:00 37.5 C 138 H 29 H 138/88 85/63 L 05/15/19 08:57 26 H 05/15/19 08:54 37.5 C 138 H 29 H 138/81 109/49 L 05/15/19 08:50 37.5 C 29 H 111/29 L 115/52 L 05/15/19 08:47 37.4 C 29 H 05/15/19 08:39 37.4 C 136 H 29 H 177/102 H 05/15/19 08:34 37.4 C 127 H 29 H 150/73 H 05/15/19 08:29 37.4 C 124 H 29 H 143/101 H 05/15/19 05:00 108 H 20 116/75 05/15/19 02:48 119 H 20 132/76 05/15/19 01:49 05/15/19 01:41 36.5 C 05/15/19 00:46 133 H 20 127/85 Pulse Ox 05/15/19 09:23 66 L 05/15/19 09:10 99 05/15/19 09:04 82 L 05/15/19 09:00 80 L 05/15/19 08:57 05/15/19 08:54 76 L 05/15/19 08:50 85 L 05/15/19 08:47 81 L 05/15/19 08:39 74 L 05/15/19 08:34 66 L 05/15/19 08:29 78 L 05/15/19 05:00 98 05/15/19 02:48 98 05/15/19 01:49 98 05/15/19 01:41 05/15/19 00:46 97 Laboratory Results 05/15/19 05/15/19 05/15/19 Range/Units 09:45 09:45 09:11 WBC RBC Hgb Hct MCV MCH MCHC RDW Std Deviation RDW Coeff of Camila Plt Count MPV Immature Gran % (Auto) Neut % (Auto) Lymph % (Auto) [place] % (Auto) Eos % (Auto) Baso % (Auto) Immature Gran # (Auto) Neut # (Auto) Lymph # (Auto) [place] # (Auto) Eos # (Auto) Baso # (Auto) Absolute Nucleated RBC Nucleated RBC % (auto) Neutrophils % (Manual) Band Neutrophils % Lymphocytes % (Manual) Prolymphocyte % Reactive Lymphs % (Man) Monocytes % (Manual) Eosinophils % (Manual) Basophils % (Manual) Metamyelocytes % (Man) Myelocytes % (Man) Promyelocytes % (Man) Blast Cells % (Manual) Plasma Cell % (Manual) Other Cells % Nucleated RBC % Neutrophils # (Manual) Band Neutrophils # Total Absolute Neuts Lymphocytes # (Manual) Prolymphocyte # Reactive Lymphs # Total Abs Lymphocytes Monocytes # (Manual) Eosinophils # (Manual) Basophils # (Manual) Metamyelocytes # (Man) Myelocytes # (Manual) Promyelocytes # (Man) Blast Cells # (Man) Plasma Cell # (Manual) Other Cells # Nucleated RBCs # (Man) Hypersegmented Neuts Hyposegmented Neuts Hypogranular Neuts Large Granular Lymphs # Lrg Granular Lymphs Hairy Cells Smudge Cells Toxic Granulation Toxic Vacuolation Dohle Bodies Yi Rods Platelet Estimate Hypogranular Platelets Clumped Platelets Giant Platelets Platelet Satelliting RBC Morphology Polychromasia Hypochromasia Poikilocytosis Basophilic Stippling Anisocytosis Microcytosis Macrocytosis Spherocytes Pappenheimer Bodies Sickle Cells Target Cells Tear Drop Cells Ovalocytes Stomatocytes Pérez-Mayking Bodies Echinocytes Acanthocytes (Spur) Rouleaux RBC Agglutinates Schistocytes RBC Morph Comment Sezary Cell PT INR APTT PTT Ratio Sample Site Art Line POC pH 7.22 L (7.35-7.45) POC pCO2 51 H (35-46) mmHg POC pO2 108 H (80-95) mmHg POC HCO3 21 (19-24) severiano/L POC Total CO2 22 L (24-31) mEq/l POC Base Excess -7.0 (-9-1.8) severiano/L POC ABG O2 Sat 97.0 H (90-95) % Yaniv Test NA O2 Delivery Device Ventilator POC O2 Rate 26 Minute Ventilation 9.6 POC FiO2 100 % Tidal Volume 370 PEEP 26 Sodium (136-145) mmol/L Potassium (3.5-5.1) mmol/L Chloride (98-107) mmol/L Carbon Dioxide (21-32) mmol/L Anion Gap (3-11) BUN (7-18) mg/dl Creatinine (0.6-1.2) mg/dl Est Cr Clr Drug Dosing ml/min Est GFR ( Amer) Est GFR (Non-Af Amer) BUN/Creatinine Ratio (10-20) Glucose (70-99) mg/dl Lactate (0.4-2.0) mmol/L Calcium (8.5-10.1) mg/dl Magnesium (1.8-2.4) mg/dl Total Bilirubin (0.2-1) mg/dl AST (15-37) U/L ALT (12-78) U/L Alkaline Phosphatase (45-117) U/L Troponin I (0-0.045) ng/ml Total Protein (6.4-8.2) gm/dl Albumin (3.4-5.0) gm/dl Globulin (2.5-4.0) gm/dl Albumin/Globulin Ratio (0.9-2) Lipase (73-393) U/L Urine Color Urine Appearance (Clear) Urine pH (4.5-7.5) Ur Specific Mobile (1.000-1.030) Urine Protein (Negative) Urine Glucose (UA) (Negative) Urine Ketones (Negative) Urine Blood (Negative) Urine Nitrite (Negative) Urine Bilirubin (Negative) Urine Urobilinogen (Negative) Ur Leukocyte Esterase (Negative) Urine WBC (Auto) (0-5) /hpf Urine RBC (Auto) (0-4) /hpf U Hyaline Cast (Auto) (0-5) /lpf U Epithel Cells (Auto) (0-5) /lpf Urine Bacteria (Auto) (Negative) Urine Yeast POC Ur Test (NEG) Nasal Screen MRSA (PCR) Pending Vancomycin Trough (See Comment) mcg/ml Influenza Type A Ag Pending Influenza Type B Ag Pending 05/15/19 05/15/19 05/15/19 Range/Units 09:09 09:09 09:09 WBC RBC Hgb Hct MCV MCH MCHC RDW Std Deviation RDW Coeff of Camila Plt Count MPV Immature Gran % (Auto) Neut % (Auto) Lymph % (Auto) [place] % (Auto) Eos % (Auto) Baso % (Auto) Immature Gran # (Auto) Neut # (Auto) Lymph # (Auto) [place] # (Auto) Eos # (Auto) Baso # (Auto) Absolute Nucleated RBC Nucleated RBC % (auto) Neutrophils % (Manual) Band Neutrophils % Lymphocytes % (Manual) Prolymphocyte % Reactive Lymphs % (Man) Monocytes % (Manual) Eosinophils % (Manual) Basophils % (Manual) Metamyelocytes % (Man) Myelocytes % (Man) Promyelocytes % (Man) Blast Cells % (Manual) Plasma Cell % (Manual) Other Cells % Nucleated RBC % Neutrophils # (Manual) Band Neutrophils # Total Absolute Neuts Lymphocytes # (Manual) Prolymphocyte # Reactive Lymphs # Total Abs Lymphocytes Monocytes # (Manual) Eosinophils # (Manual) Basophils # (Manual) Metamyelocytes # (Man) Myelocytes # (Manual) Promyelocytes # (Man) Blast Cells # (Man) Plasma Cell # (Manual) Other Cells # Nucleated RBCs # (Man) Hypersegmented Neuts Hyposegmented Neuts Hypogranular Neuts Large Granular Lymphs # Lrg Granular Lymphs Hairy Cells Smudge Cells Toxic Granulation Toxic Vacuolation Dohle Bodies Yi Rods Platelet Estimate Hypogranular Platelets Clumped Platelets Giant Platelets Platelet Satelliting RBC Morphology Polychromasia Hypochromasia Poikilocytosis Basophilic Stippling Anisocytosis Microcytosis Macrocytosis Spherocytes Pappenheimer Bodies Sickle Cells Target Cells Tear Drop Cells Ovalocytes Stomatocytes Pérez-Mayking Bodies Echinocytes Acanthocytes (Spur) Rouleaux RBC Agglutinates Schistocytes RBC Morph Comment Sezary Cell PT INR APTT PTT Ratio Sample Site POC pH (7.35-7.45) POC pCO2 (35-46) mmHg POC pO2 (80-95) mmHg POC HCO3 (19-24) severiano/L POC Total CO2 (24-31) mEq/l POC Base Excess (-9-1.8) severiano/L POC ABG O2 Sat (90-95) % Yaniv Test O2 Delivery Device POC O2 Rate Minute Ventilation POC FiO2 % Tidal Volume PEEP Sodium 131 L (136-145) mmol/L Potassium 3.7 (3.5-5.1) mmol/L Chloride 102 (98-107) mmol/L Carbon Dioxide 21 (21-32) mmol/L Anion Gap 9.0 (3-11) BUN 23 H (7-18) mg/dl Creatinine 1.07 (0.6-1.2) mg/dl Est Cr Clr Drug Dosing 73.7 ml/min Est GFR ( Amer) 72.1 Est GFR (Non-Af Amer) 62.2 BUN/Creatinine Ratio 21.3 H (10-20) Glucose 208 H (70-99) mg/dl Lactate 3.1 H* (0.4-2.0) mmol/L Calcium 8.4 L (8.5-10.1) mg/dl Magnesium (1.8-2.4) mg/dl Total Bilirubin 1.0 (0.2-1) mg/dl AST 23 (15-37) U/L ALT 12 (12-78) U/L Alkaline Phosphatase 52 (45-117) U/L Troponin I 0.026 (0-0.045) ng/ml Total Protein 5.8 L D (6.4-8.2) gm/dl Albumin 2.6 L (3.4-5.0) gm/dl Globulin 3.2 (2.5-4.0) gm/dl Albumin/Globulin Ratio 0.8 L (0.9-2) Lipase (73-393) U/L Urine Color Urine Appearance (Clear) Urine pH (4.5-7.5) Ur Specific Mobile (1.000-1.030) Urine Protein (Negative) Urine Glucose (UA) (Negative) Urine Ketones (Negative) Urine Blood (Negative) Urine Nitrite (Negative) Urine Bilirubin (Negative) Urine Urobilinogen (Negative) Ur Leukocyte Esterase (Negative) Urine WBC (Auto) (0-5) /hpf Urine RBC (Auto) (0-4) /hpf U Hyaline Cast (Auto) (0-5) /lpf U Epithel Cells (Auto) (0-5) /lpf Urine Bacteria (Auto) (Negative) Urine Yeast POC Ur Test (NEG) Nasal Screen MRSA (PCR) Vancomycin Trough (See Comment) mcg/ml Influenza Type A Ag Influenza Type B Ag 05/15/19 05/15/19 05/15/19 Range/Units 09:09 09:09 08:39 WBC Pending RBC Pending Hgb Pending Hct Pending MCV Pending MCH Pending MCHC Pending RDW Std Deviation RDW Coeff of Camila Plt Count Pending MPV Immature Gran % (Auto) Neut % (Auto) Lymph % (Auto) [place] % (Auto) Eos % (Auto) Baso % (Auto) Immature Gran # (Auto) Neut # (Auto) Lymph # (Auto) [place] # (Auto) Eos # (Auto) Baso # (Auto) Absolute Nucleated RBC Nucleated RBC % (auto) Neutrophils % (Manual) Band Neutrophils % Lymphocytes % (Manual) Prolymphocyte % Reactive Lymphs % (Man) Monocytes % (Manual) Eosinophils % (Manual) Basophils % (Manual) Metamyelocytes % (Man) Myelocytes % (Man) Promyelocytes % (Man) Blast Cells % (Manual) Plasma Cell % (Manual) Other Cells % Nucleated RBC % Neutrophils # (Manual) Band Neutrophils # Total Absolute Neuts Lymphocytes # (Manual) Prolymphocyte # Reactive Lymphs # Total Abs Lymphocytes Monocytes # (Manual) Eosinophils # (Manual) Basophils # (Manual) Metamyelocytes # (Man) Myelocytes # (Manual) Promyelocytes # (Man) Blast Cells # (Man) Plasma Cell # (Manual) Other Cells # Nucleated RBCs # (Man) Hypersegmented Neuts Hyposegmented Neuts Hypogranular Neuts Large Granular Lymphs # Lrg Granular Lymphs Hairy Cells Smudge Cells Toxic Granulation Toxic Vacuolation Dohle Bodies Yi Rods Platelet Estimate Hypogranular Platelets Clumped Platelets Giant Platelets Platelet Satelliting RBC Morphology Polychromasia Hypochromasia Poikilocytosis Basophilic Stippling Anisocytosis Microcytosis Macrocytosis Spherocytes Pappenheimer Bodies Sickle Cells Target Cells Tear Drop Cells Ovalocytes Stomatocytes Pérez-Mayking Bodies Echinocytes Acanthocytes (Spur) Rouleaux RBC Agglutinates Schistocytes RBC Morph Comment Sezary Cell PT INR APTT PTT Ratio Sample Site Art Line POC pH 7.23 L (7.35-7.45) POC pCO2 53 H (35-46) mmHg POC pO2 40 L (80-95) mmHg POC HCO3 23 (19-24) severiano/L POC Total CO2 24 (24-31) mEq/l POC Base Excess -5.0 (-9-1.8) severiano/L POC ABG O2 Sat 64.0 L (90-95) % Yaniv Test NA O2 Delivery Device Ventilator POC O2 Rate 30 Minute Ventilation 11.1 POC FiO2 100 % Tidal Volume 370 PEEP 20 Sodium (136-145) mmol/L Potassium (3.5-5.1) mmol/L Chloride (98-107) mmol/L Carbon Dioxide (21-32) mmol/L Anion Gap (3-11) BUN (7-18) mg/dl Creatinine (0.6-1.2) mg/dl Est Cr Clr Drug Dosing ml/min Est GFR ( Amer) Est GFR (Non-Af Amer) BUN/Creatinine Ratio (10-20) Glucose (70-99) mg/dl Lactate (0.4-2.0) mmol/L Calcium (8.5-10.1) mg/dl Magnesium (1.8-2.4) mg/dl Total Bilirubin (0.2-1) mg/dl AST (15-37) U/L ALT (12-78) U/L Alkaline Phosphatase (45-117) U/L Troponin I (0-0.045) ng/ml Total Protein (6.4-8.2) gm/dl Albumin (3.4-5.0) gm/dl Globulin (2.5-4.0) gm/dl Albumin/Globulin Ratio (0.9-2) Lipase (73-393) U/L Urine Color Urine Appearance (Clear) Urine pH (4.5-7.5) Ur Specific Mobile (1.000-1.030) Urine Protein (Negative) Urine Glucose (UA) (Negative) Urine Ketones (Negative) Urine Blood (Negative) Urine Nitrite (Negative) Urine Bilirubin (Negative) Urine Urobilinogen (Negative) Ur Leukocyte Esterase (Negative) Urine WBC (Auto) (0-5) /hpf Urine RBC (Auto) (0-4) /hpf U Hyaline Cast (Auto) (0-5) /lpf U Epithel Cells (Auto) (0-5) /lpf Urine Bacteria (Auto) (Negative) Urine Yeast POC Ur Test (NEG) Nasal Screen MRSA (PCR) Vancomycin Trough 1.3 (See Comment) mcg/ml Influenza Type A Ag Influenza Type B Ag 05/15/19 05/15/19 05/15/19 Range/Units 05:30 05:30 04:10 WBC RBC Hgb Hct MCV MCH MCHC RDW Std Deviation RDW Coeff of Camila Plt Count MPV Immature Gran % (Auto) Neut % (Auto) Lymph % (Auto) [place] % (Auto) Eos % (Auto) Baso % (Auto) Immature Gran # (Auto) Neut # (Auto) Lymph # (Auto) [place] # (Auto) Eos # (Auto) Baso # (Auto) Absolute Nucleated RBC Nucleated RBC % (auto) Neutrophils % (Manual) Band Neutrophils % Lymphocytes % (Manual) Prolymphocyte % Reactive Lymphs % (Man) Monocytes % (Manual) Eosinophils % (Manual) Basophils % (Manual) Metamyelocytes % (Man) Myelocytes % (Man) Promyelocytes % (Man) Blast Cells % (Manual) Plasma Cell % (Manual) Other Cells % Nucleated RBC % Neutrophils # (Manual) Band Neutrophils # Total Absolute Neuts Lymphocytes # (Manual) Prolymphocyte # Reactive Lymphs # Total Abs Lymphocytes Monocytes # (Manual) Eosinophils # (Manual) Basophils # (Manual) Metamyelocytes # (Man) Myelocytes # (Manual) Promyelocytes # (Man) Blast Cells # (Man) Plasma Cell # (Manual) Other Cells # Nucleated RBCs # (Man) Hypersegmented Neuts Hyposegmented Neuts Hypogranular Neuts Large Granular Lymphs # Lrg Granular Lymphs Hairy Cells Smudge Cells Toxic Granulation Toxic Vacuolation Dohle Bodies Yi Rods Platelet Estimate Hypogranular Platelets Clumped Platelets Giant Platelets Platelet Satelliting RBC Morphology Polychromasia Hypochromasia Poikilocytosis Basophilic Stippling Anisocytosis Microcytosis Macrocytosis Spherocytes Pappenheimer Bodies Sickle Cells Target Cells Tear Drop Cells Ovalocytes Stomatocytes Pérez-Mayking Bodies Echinocytes Acanthocytes (Spur) Rouleaux RBC Agglutinates Schistocytes RBC Morph Comment Sezary Cell PT 11.2 INR 1.1 APTT 27.3 PTT Ratio 1.0 Sample Site POC pH (7.35-7.45) POC pCO2 (35-46) mmHg POC pO2 (80-95) mmHg POC HCO3 (19-24) severiano/L POC Total CO2 (24-31) mEq/l POC Base Excess (-9-1.8) severiano/L POC ABG O2 Sat (90-95) % Yaniv Test O2 Delivery Device POC O2 Rate Minute Ventilation POC FiO2 % Tidal Volume PEEP Sodium (136-145) mmol/L Potassium (3.5-5.1) mmol/L Chloride (98-107) mmol/L Carbon Dioxide (21-32) mmol/L Anion Gap (3-11) BUN (7-18) mg/dl Creatinine (0.6-1.2) mg/dl Est Cr Clr Drug Dosing ml/min Est GFR ( Amer) Est GFR (Non-Af Amer) BUN/Creatinine Ratio (10-20) Glucose (70-99) mg/dl Lactate (0.4-2.0) mmol/L Calcium (8.5-10.1) mg/dl Magnesium (1.8-2.4) mg/dl Total Bilirubin (0.2-1) mg/dl AST (15-37) U/L ALT (12-78) U/L Alkaline Phosphatase (45-117) U/L Troponin I (0-0.045) ng/ml Total Protein (6.4-8.2) gm/dl Albumin (3.4-5.0) gm/dl Globulin (2.5-4.0) gm/dl Albumin/Globulin Ratio (0.9-2) Lipase (73-393) U/L Urine Color Dark Yellow Urine Appearance Clear (Clear) Urine pH 5.5 (4.5-7.5) Ur Specific Mobile > 1.045 H (1.000-1.030) Urine Protein 1+ H (Negative) Urine Glucose (UA) Trace H (Negative) Urine Ketones Trace H (Negative) Urine Blood Negative (Negative) Urine Nitrite Negative (Negative) Urine Bilirubin Negative (Negative) Urine Urobilinogen Negative (Negative) Ur Leukocyte Esterase Negative (Negative) Urine WBC (Auto) 10-30 H (0-5) /hpf Urine RBC (Auto) 0-4 (0-4) /hpf U Hyaline Cast (Auto) 10-30 H (0-5) /lpf U Epithel Cells (Auto) >30 H (0-5) /lpf Urine Bacteria (Auto) Negative (Negative) Urine Yeast Not Reportable POC Ur Test NEG (NEG) Nasal Screen MRSA (PCR) Vancomycin Trough (See Comment) mcg/ml Influenza Type A Ag Influenza Type B Ag 05/15/19 05/15/19 05/15/19 Range/Units 03:59 02:34 02:34 WBC 11.11 H Cancelled RBC 5.10 Cancelled Hgb 14.2 Cancelled Hct 41.0 Cancelled MCV 80.4 Cancelled MCH 27.8 Cancelled MCHC 34.6 Cancelled RDW Std Deviation 35.7 L Cancelled RDW Coeff of Camila 12.4 Cancelled Plt Count 313 Cancelled MPV 9.2 Cancelled Immature Gran % (Auto) 0.2 Cancelled Neut % (Auto) 90.3 Cancelled Lymph % (Auto) 5.0 Cancelled [place] % (Auto) 4.4 Cancelled Eos % (Auto) 0.0 Cancelled Baso % (Auto) 0.1 Cancelled Immature Gran # (Auto) 0.02 Cancelled Neut # (Auto) 10.04 H Cancelled Lymph # (Auto) 0.55 L Cancelled [place] # (Auto) 0.49 Cancelled Eos # (Auto) 0.00 Cancelled Baso # (Auto) 0.01 Cancelled Absolute Nucleated RBC Cancelled Nucleated RBC % (auto) Cancelled Neutrophils % (Manual) Cancelled Band Neutrophils % Cancelled Lymphocytes % (Manual) Cancelled Prolymphocyte % Cancelled Reactive Lymphs % (Man) Cancelled Monocytes % (Manual) Cancelled Eosinophils % (Manual) Cancelled Basophils % (Manual) Cancelled Metamyelocytes % (Man) Cancelled Myelocytes % (Man) Cancelled Promyelocytes % (Man) Cancelled Blast Cells % (Manual) Cancelled Plasma Cell % (Manual) Cancelled Other Cells % Cancelled Nucleated RBC % Cancelled Neutrophils # (Manual) Cancelled Band Neutrophils # Cancelled Total Absolute Neuts Cancelled Lymphocytes # (Manual) Cancelled Prolymphocyte # Cancelled Reactive Lymphs # Cancelled Total Abs Lymphocytes Cancelled Monocytes # (Manual) Cancelled Eosinophils # (Manual) Cancelled Basophils # (Manual) Cancelled Metamyelocytes # (Man) Cancelled Myelocytes # (Manual) Cancelled Promyelocytes # (Man) Cancelled Blast Cells # (Man) Cancelled Plasma Cell # (Manual) Cancelled Other Cells # Cancelled Nucleated RBCs # (Man) Cancelled Hypersegmented Neuts Cancelled Hyposegmented Neuts Cancelled Hypogranular Neuts Cancelled Large Granular Lymphs Cancelled # Lrg Granular Lymphs Cancelled Hairy Cells Cancelled Smudge Cells Cancelled Toxic Granulation Cancelled Toxic Vacuolation Cancelled Dohle Bodies Cancelled Yi Rods Cancelled Platelet Estimate Cancelled Hypogranular Platelets Cancelled Clumped Platelets Cancelled Giant Platelets Cancelled Platelet Satelliting Cancelled RBC Morphology Cancelled Polychromasia Cancelled Hypochromasia Cancelled Poikilocytosis Cancelled Basophilic Stippling Cancelled Anisocytosis Cancelled Microcytosis Cancelled Macrocytosis Cancelled Spherocytes Cancelled Pappenheimer Bodies Cancelled Sickle Cells Cancelled Target Cells Cancelled Tear Drop Cells Cancelled Ovalocytes Cancelled Stomatocytes Cancelled Pérez-Mayking Bodies Cancelled Echinocytes Cancelled Acanthocytes (Spur) Cancelled Rouleaux Cancelled RBC Agglutinates Cancelled Schistocytes Cancelled RBC Morph Comment Cancelled Sezary Cell Cancelled PT INR APTT PTT Ratio Sample Site POC pH (7.35-7.45) POC pCO2 (35-46) mmHg POC pO2 (80-95) mmHg POC HCO3 (19-24) severiano/L POC Total CO2 (24-31) mEq/l POC Base Excess (-9-1.8) severiano/L POC ABG O2 Sat (90-95) % Yaniv Test O2 Delivery Device POC O2 Rate Minute Ventilation POC FiO2 % Tidal Volume PEEP Sodium (136-145) mmol/L Potassium (3.5-5.1) mmol/L Chloride (98-107) mmol/L Carbon Dioxide (21-32) mmol/L Anion Gap (3-11) BUN (7-18) mg/dl Creatinine (0.6-1.2) mg/dl Est Cr Clr Drug Dosing ml/min Est GFR ( Amer) Est GFR (Non-Af Amer) BUN/Creatinine Ratio (10-20) Glucose (70-99) mg/dl Lactate 1.5 (0.4-2.0) mmol/L Calcium (8.5-10.1) mg/dl Magnesium (1.8-2.4) mg/dl Total Bilirubin (0.2-1) mg/dl AST (15-37) U/L ALT (12-78) U/L Alkaline Phosphatase (45-117) U/L Troponin I (0-0.045) ng/ml Total Protein (6.4-8.2) gm/dl Albumin (3.4-5.0) gm/dl Globulin (2.5-4.0) gm/dl Albumin/Globulin Ratio (0.9-2) Lipase (73-393) U/L Urine Color Urine Appearance (Clear) Urine pH (4.5-7.5) Ur Specific Mobile (1.000-1.030) Urine Protein (Negative) Urine Glucose (UA) (Negative) Urine Ketones (Negative) Urine Blood (Negative) Urine Nitrite (Negative) Urine Bilirubin (Negative) Urine Urobilinogen (Negative) Ur Leukocyte Esterase (Negative) Urine WBC (Auto) (0-5) /hpf Urine RBC (Auto) (0-4) /hpf U Hyaline Cast (Auto) (0-5) /lpf U Epithel Cells (Auto) (0-5) /lpf Urine Bacteria (Auto) (Negative) Urine Yeast POC Ur Test (NEG) Nasal Screen MRSA (PCR) Vancomycin Trough (See Comment) mcg/ml Influenza Type A Ag Influenza Type B Ag 05/15/19 05/15/19 05/15/19 Range/Units 02:34 02:14 02:14 WBC Cancelled RBC Cancelled Hgb Cancelled Hct Cancelled MCV Cancelled MCH Cancelled MCHC Cancelled RDW Std Deviation Cancelled RDW Coeff of Camila Cancelled Plt Count Cancelled MPV Cancelled Immature Gran % (Auto) Cancelled Neut % (Auto) Cancelled Lymph % (Auto) Cancelled [place] % (Auto) Cancelled Eos % (Auto) Cancelled Baso % (Auto) Cancelled Immature Gran # (Auto) Cancelled Neut # (Auto) Cancelled Lymph # (Auto) Cancelled [place] # (Auto) Cancelled Eos # (Auto) Cancelled Baso # (Auto) Cancelled Absolute Nucleated RBC Cancelled Nucleated RBC % (auto) Cancelled Neutrophils % (Manual) Cancelled Band Neutrophils % Cancelled Lymphocytes % (Manual) Cancelled Prolymphocyte % Cancelled Reactive Lymphs % (Man) Cancelled Monocytes % (Manual) Cancelled Eosinophils % (Manual) Cancelled Basophils % (Manual) Cancelled Metamyelocytes % (Man) Cancelled Myelocytes % (Man) Cancelled Promyelocytes % (Man) Cancelled Blast Cells % (Manual) Cancelled Plasma Cell % (Manual) Cancelled Other Cells % Cancelled Nucleated RBC % Cancelled Neutrophils # (Manual) Cancelled Band Neutrophils # Cancelled Total Absolute Neuts Cancelled Lymphocytes # (Manual) Cancelled Prolymphocyte # Cancelled Reactive Lymphs # Cancelled Total Abs Lymphocytes Cancelled Monocytes # (Manual) Cancelled Eosinophils # (Manual) Cancelled Basophils # (Manual) Cancelled Metamyelocytes # (Man) Cancelled Myelocytes # (Manual) Cancelled Promyelocytes # (Man) Cancelled Blast Cells # (Man) Cancelled Plasma Cell # (Manual) Cancelled Other Cells # Cancelled Nucleated RBCs # (Man) Cancelled Hypersegmented Neuts Cancelled Hyposegmented Neuts Cancelled Hypogranular Neuts Cancelled Large Granular Lymphs Cancelled # Lrg Granular Lymphs Cancelled Hairy Cells Cancelled Smudge Cells Cancelled Toxic Granulation Cancelled Toxic Vacuolation Cancelled Dohle Bodies Cancelled Yi Rods Cancelled Platelet Estimate Cancelled Hypogranular Platelets Cancelled Clumped Platelets Cancelled Giant Platelets Cancelled Platelet Satelliting Cancelled RBC Morphology Cancelled Polychromasia Cancelled Hypochromasia Cancelled Poikilocytosis Cancelled Basophilic Stippling Cancelled Anisocytosis Cancelled Microcytosis Cancelled Macrocytosis Cancelled Spherocytes Cancelled Pappenheimer Bodies Cancelled Sickle Cells Cancelled Target Cells Cancelled Tear Drop Cells Cancelled Ovalocytes Cancelled Stomatocytes Cancelled Pérez-Mayking Bodies Cancelled Echinocytes Cancelled Acanthocytes (Spur) Cancelled Rouleaux Cancelled RBC Agglutinates Cancelled Schistocytes Cancelled RBC Morph Comment Cancelled Sezary Cell Cancelled PT Cancelled INR Cancelled APTT Cancelled PTT Ratio Cancelled Sample Site POC pH (7.35-7.45) POC pCO2 (35-46) mmHg POC pO2 (80-95) mmHg POC HCO3 (19-24) severiano/L POC Total CO2 (24-31) mEq/l POC Base Excess (-9-1.8) severiano/L POC ABG O2 Sat (90-95) % Yaniv Test O2 Delivery Device POC O2 Rate Minute Ventilation POC FiO2 % Tidal Volume PEEP Sodium 130 L (136-145) mmol/L Potassium 3.3 L (3.5-5.1) mmol/L Chloride 90 L (98-107) mmol/L Carbon Dioxide 27 (21-32) mmol/L Anion Gap 13.0 H (3-11) BUN 26 H (7-18) mg/dl Creatinine 1.35 H (0.6-1.2) mg/dl Est Cr Clr Drug Dosing 58.4 ml/min Est GFR ( Amer) 54.4 Est GFR (Non-Af Amer) 47.0 BUN/Creatinine Ratio 19.1 (10-20) Glucose 175 H (70-99) mg/dl Lactate (0.4-2.0) mmol/L Calcium 9.8 (8.5-10.1) mg/dl Magnesium 2.0 (1.8-2.4) mg/dl Total Bilirubin 0.7 (0.2-1) mg/dl AST 32 (15-37) U/L ALT 19 (12-78) U/L Alkaline Phosphatase 74 (45-117) U/L Troponin I < 0.015 (0-0.045) ng/ml Total Protein 8.3 H (6.4-8.2) gm/dl Albumin 3.6 (3.4-5.0) gm/dl Globulin 4.7 H (2.5-4.0) gm/dl Albumin/Globulin Ratio 0.8 L (0.9-2) Lipase 393 (73-393) U/L Urine Color Urine Appearance (Clear) Urine pH (4.5-7.5) Ur Specific Mobile (1.000-1.030) Urine Protein (Negative) Urine Glucose (UA) (Negative) Urine Ketones (Negative) Urine Blood (Negative) Urine Nitrite (Negative) Urine Bilirubin (Negative) Urine Urobilinogen (Negative) Ur Leukocyte Esterase (Negative) Urine WBC (Auto) (0-5) /hpf Urine RBC (Auto) (0-4) /hpf U Hyaline Cast (Auto) (0-5) /lpf U Epithel Cells (Auto) (0-5) /lpf Urine Bacteria (Auto) (Negative) Urine Yeast POC Ur Test (NEG) Nasal Screen MRSA (PCR) Vancomycin Trough (See Comment) mcg/ml Influenza Type A Ag Influenza Type B Ag Diagnostic Findings 05/15/19 05/15/19 05/15/19 Range/Units 14:44 13:09 13:09 Immature Gran % (Auto) % Neut % (Auto) % Lymph % (Auto) % [place] % (Auto) % Eos % (Auto) % Baso % (Auto) % Immature Gran # (Auto) (0.00-0.02) K/uL Neut # (Auto) (1.4-6.5) K/uL Lymph # (Auto) (1.2-3.4) K/uL [place] # (Auto) (0.11-0.59) K/uL Eos # (Auto) (0-0.5) K/uL Baso # (Auto) (0-0.2) K/uL Hyposegmented Neuts Sample Site Art Line POC pH 7.12 L* (7.35-7.45) POC pCO2 63 H (35-46) mmHg POC pO2 74 L (80-95) mmHg POC HCO3 20 (19-24) severiano/L POC Total CO2 22 L (24-31) mEq/l POC Base Excess -9.0 (-9-1.8) severiano/L POC ABG O2 Sat 88.0 L (90-95) % Yaniv Test NA O2 Delivery Device Ventilator POC O2 Rate 26 Minute Ventilation 9.2 POC FiO2 % Tidal Volume 370 PEEP 16 Sodium 133 L (136-145) mmol/L Potassium 3.6 (3.5-5.1) mmol/L Chloride 103 (98-107) mmol/L Carbon Dioxide 20 L (21-32) mmol/L Anion Gap 10.0 (3-11) BUN 23 H (7-18) mg/dl Creatinine 1.76 H (0.6-1.2) mg/dl Est Cr Clr Drug Dosing 44.8 ml/min Est GFR ( Amer) 39.5 Est GFR (Non-Af Amer) 34.1 BUN/Creatinine Ratio 13.0 (10-20) Glucose 210 H (70-99) mg/dl POC Glucose (70-99) Estimat Average Glucose mg/dl Hemoglobin A1c (4.5-5.6) % Lactate 6.3 H* (0.4-2.0) mmol/L Calcium 6.9 L D (8.5-10.1) mg/dl HIV 1&2 Ab/P24 Ag 4thGn (Neg) 05/15/19 05/15/19 05/15/19 Range/Units 13:08 13:01 11:44 Immature Gran % (Auto) % Neut % (Auto) % Lymph % (Auto) % [place] % (Auto) % Eos % (Auto) % Baso % (Auto) % Immature Gran # (Auto) (0.00-0.02) K/uL Neut # (Auto) (1.4-6.5) K/uL Lymph # (Auto) (1.2-3.4) K/uL [place] # (Auto) (0.11-0.59) K/uL Eos # (Auto) (0-0.5) K/uL Baso # (Auto) (0-0.2) K/uL Hyposegmented Neuts Sample Site L Radial POC pH 7.10 L* (7.35-7.45) POC pCO2 60 H (35-46) mmHg POC pO2 71 L (80-95) mmHg POC HCO3 19 (19-24) severiano/L POC Total CO2 20 L (24-31) mEq/l POC Base Excess -11.0 L (-9-1.8) severiano/L POC ABG O2 Sat 86.0 L (90-95) % Yaniv Test NA O2 Delivery Device Ventilator POC O2 Rate 34 Minute Ventilation 11.6 POC FiO2 70 % Tidal Volume 340 PEEP 18 Sodium (136-145) mmol/L Potassium (3.5-5.1) mmol/L Chloride (98-107) mmol/L Carbon Dioxide (21-32) mmol/L Anion Gap (3-11) BUN (7-18) mg/dl Creatinine 1.54 H D (0.6-1.2) mg/dl Est Cr Clr Drug Dosing 51.2 ml/min Est GFR ( Amer) 46.4 Est GFR (Non-Af Amer) 40.1 BUN/Creatinine Ratio (10-20) Glucose (70-99) mg/dl POC Glucose 182 H (70-99) Estimat Average Glucose mg/dl Hemoglobin A1c (4.5-5.6) % Lactate (0.4-2.0) mmol/L Calcium (8.5-10.1) mg/dl HIV 1&2 Ab/P24 Ag 4thGn (Neg) 05/15/19 05/15/19 05/15/19 Range/Units 10:26 10:26 09:07 Immature Gran % (Auto) 0.0 % Neut % (Auto) 44.6 % Lymph % (Auto) 47.7 % [place] % (Auto) 1.5 % Eos % (Auto) 3.1 % Baso % (Auto) 3.1 % Immature Gran # (Auto) 0.00 (0.00-0.02) K/uL Neut # (Auto) 0.29 L* (1.4-6.5) K/uL Lymph # (Auto) 0.31 L (1.2-3.4) K/uL [place] # (Auto) 0.01 L (0.11-0.59) K/uL Eos # (Auto) 0.02 (0-0.5) K/uL Baso # (Auto) 0.02 (0-0.2) K/uL Hyposegmented Neuts 2+ Sample Site POC pH (7.35-7.45) POC pCO2 (35-46) mmHg POC pO2 (80-95) mmHg POC HCO3 (19-24) severiano/L POC Total CO2 (24-31) mEq/l POC Base Excess (-9-1.8) severiano/L POC ABG O2 Sat (90-95) % Yaniv Test O2 Delivery Device POC O2 Rate Minute Ventilation POC FiO2 % Tidal Volume PEEP Sodium (136-145) mmol/L Potassium (3.5-5.1) mmol/L Chloride (98-107) mmol/L Carbon Dioxide (21-32) mmol/L Anion Gap (3-11) BUN (7-18) mg/dl Creatinine (0.6-1.2) mg/dl Est Cr Clr Drug Dosing ml/min Est GFR ( Amer) Est GFR (Non-Af Amer) BUN/Creatinine Ratio (10-20) Glucose (70-99) mg/dl POC Glucose (70-99) Estimat Average Glucose 108 mg/dl Hemoglobin A1c 5.4 (4.5-5.6) % Lactate (0.4-2.0) mmol/L Calcium (8.5-10.1) mg/dl HIV 1&2 Ab/P24 Ag 4thGn Neg (Neg) Medications Administered Current Inpatient Medications Fentanyl Citrate (Fentanyl Bolus From Bag) 25 mcg IV ONE PRN PRN Reason: pain/sedation Cisatracurium Besylate 40 mg/ (Sodium Chloride) 100 mls @ 9.24 mls/hr IV .[id number] ZAYNAB; Protocol Stop: 06/14/19 08:49 Last Admin: 05/15/19 08:55 Dose: 1 mcg/kg/min, 9.2 mls/hr Documented by: Fentanyl Citrate (Fentanyl Drip) 1,250 mcg in 250 mls @ 15 mls/hr IV .[id number] ZAYNAB; Protocol Stop: 05/29/19 08:40 Last Titration: 05/15/19 09:39 Dose: 75 mcg/hr, 15 mls/hr Documented by: Vancomycin HCl 1,750 mg/ (Sodium Chloride) 535 mls @ 200 mls/hr IV NOW ONE; Protocol Stop: 05/15/19 11:40 Last Admin: 05/15/19 09:38 Dose: 200 mls/hr Documented by: Propofol (Diprivan) 1,000 mg in 100 mls @ 5.118 mls/hr IV .[id number] ZAYNAB; Protocol Stop: 05/18/19 08:40 Last Admin: 05/15/19 09:06 Dose: 10 mcg/kg/min, 5.1 mls/hr Documented by: Piperacillin Sod/Tazobactam (Sod 3.375 gm/ Dextrose) 115 mls @ 28.75 mls/hr IV Q8H ZAYNAB; Protocol Stop: 05/25/19 08:59 Last Admin: 05/15/19 09:38 Dose: 28.8 mls/hr Documented by: Lactated Ringer's (Lr) 1,000 mls @ 125 mls/hr IV .Q8H ZAYNAB Stop: 06/14/19 08:59 Last Admin: 05/15/19 09:50 Dose: 125 mls/hr Documented by: Miscellaneous Information (Consult) 1 ea N/A UD PRN PRN Reason: Consult Stop: 06/14/19 08:35 Miscellaneous Information (Consult) 1 ea N/A UD PRN PRN Reason: Consult Stop: 06/14/19 08:35 Resident Activity Tracking Resident Involvement: Resident Care Provided Care Provided: Adult Hospital Medicine (ICU)
--- NOTE | 2019-05-15 10:31 | Surgery Progress Note ---
Date of Service pt is at ICU, pt is still on vent, ICU attending recommend for ECOM, May 15, 2019 Assessment & Plan (1) Strangulated umbilical hernia: pt is a 48 year-old female who presents to ER with 2 weeks history abdominal pain with constipation, IMP: incarcerated/strangulated umbilical hernia, peritonitis, bowel perforation, Plan, I recommend to do open repair umbilical hernia, possible with mesh, bowel resection, stoma, D/W benefits, risks and alternatives of the surgery, the risks - infection, bleeding, sepsis, multiple organs failure . anastomotic leak, DVT, , pt understood, she agrees with the surgery, I answered all questions, IV fluid, antibiotic, 05/16/2019 10:26AM ICU attending DR. Britton and mi and SAVANNAH Raymond. update information to pt's sister and brother in law, Dr. Britton recommend to transfer pt to higher level care for ECOM treatment, D/W benefits, risks and alternatives of the transfer, pt's family members understood, they agree with transfer, we answered all questions. (2) Peritonitis: (3) Bowel perforation: Physical Exam Constitutional: WD/WN, vitals as above well developed, well nourished and + acute distress Eyes: PERRL, conjunctivae normal, anicteric sclerae ENMT: external ear and nose normal, oropharynx normal Neck: trachea midline, no thyromegaly Respiratory: normal respiratory effort, lungs clear to auscultation normal respiratory effort Cardiovascular: RRR, no murmur, no edema Rate/Rhythm: regular rate, regular rhythm and + tachycardic Heart Sounds: normal S1 and normal S2 Gastrointestinal (Abdomen): Percussion/Palpation: + abdomen tender, + guarding, + abdomen rigid and + hernia Musculoskeletal: no cyanosis or clubbing, extremities motor strength 5/5 Neurologic: patellar DTR's 2+ bilat, sensation intact Psychiatric: A+Ox3, euthymic affect Orientation: alert and oriented x 3 Lymphatic: no cervical or axillary lymphadenopathy Results & Data Vital Signs (Past 12 Hours) Vital Signs Temp Pulse Pulse Resp BP BP BP 05/15/19 09:10 38.2 C H 144 H 29 H 144/118 H 136/77 05/15/19 09:04 37.5 C 138 H 29 H 139/91 107/62 05/15/19 09:00 37.5 C 138 H 29 H 138/88 85/63 L 05/15/19 08:57 26 H 05/15/19 08:54 37.5 C 138 H 29 H 138/81 109/49 L 05/15/19 08:50 37.5 C 29 H 111/29 L 115/52 L 05/15/19 08:47 37.4 C 29 H 05/15/19 08:39 37.4 C 136 H 29 H 177/102 H 05/15/19 08:34 37.4 C 127 H 29 H 150/73 H 05/15/19 08:29 37.4 C 124 H 29 H 143/101 H 05/15/19 08:27 37.4 C 124 H 19 143/101 H 05/15/19 05:00 108 H 20 116/75 05/15/19 02:48 119 H 20 132/76 05/15/19 01:49 05/15/19 01:41 36.5 C 05/15/19 00:46 133 H 20 127/85 Pulse Ox 05/15/19 09:10 99 05/15/19 09:04 82 L 05/15/19 09:00 80 L 05/15/19 08:57 05/15/19 08:54 76 L 05/15/19 08:50 85 L 05/15/19 08:47 81 L 05/15/19 08:39 74 L 05/15/19 08:34 66 L 05/15/19 08:29 78 L 05/15/19 08:27 66 L 05/15/19 05:00 98 05/15/19 02:48 98 05/15/19 01:49 98 05/15/19 01:41 05/15/19 00:46 97
[2019-05-15 10:46] LABS: iSTAT Arterial Blood Gas HCO3 19 meg/L (19-24); iSTAT Arterial Blood Gas pCO2 53 mmHg (35-46); iSTAT Arterial Blood Gas pH 7.15 (7.35-7.45); iSTAT Arterial Blood Gas pO2 117 mmHg (80-95); iSTAT Carbon Dioxide 20 mEq/l (24-31); iSTAT FiO2 75 %; iSTAT Site Art Line
[2019-05-15] MEDS ORDERED: MIDAZOLAM HCL 125MG/250ML D5W ONE (10:56)
[2019-05-15] MEDS ORDERED: PHENYLEPHRINE HCL 20 MG in DEXTROSE 5% 500 ML IV SCH (11:00)
[2019-05-15] MEDS ORDERED: MIDAZOLAM HCL 125 MG/250 ML BAG IV SCH (11:00)
--- NOTE | 2019-05-15 11:02 | Infectious Disease Consult ---
Date of Consultation May 15, 2019 Assessment & Plan (1) Severe sepsis: agree with broad spectrum abx, would suggest addition of fluconazole emperically awaiting culture results. Remains critically ill. follow blood and OR cultures, continue supportive care. will follow. (2) Bowel perforation: (3) Peritonitis: (4) Strangulated umbilical hernia: History of Present Illness Attending Physician: Sandra Gaytan MD pt admitted after having abd pain, periumbilical for 2 weeks, worsening with n/v. family at bedside, history obtained from sister and from chart. CT abd/pelvis in ER revealed perforation, free air and strangulated umbilical hernia, went to OR. Now on vent, in prone postion, on pressors and broad spectrum abx. ID consulted for sepsis. Blood and abd fluid cultures pending. family denies any bleeding at home no f/c. afebrile since admission. on vanco and zoysn, tolerating well. cbc pending, lactate 3, creat 1. UA negative. CXR with alveolar damage/fluid this am. Allergies Allergy/AdvReac Type Severity Reaction Status Date / Time No Known Allergies Allergy Unverified 05/15/19 02:07 Home Medications Home Medications Medication Instructions Recorded Confirmed Type No Known Home Medications 05/15/19 05/15/19 History Patient History Medical History No pertinent past medical history Social History Preferred Language: Romanian Communication Ability Comment: intubated and paralyzed Current Living Situation: Other Current Living Situation Comment: unknown Other Information That Helps Us Care for You: No (unknown) Feels Safe at Home: Yes Smoking Status: Unknown if ever smoked Hx Alcohol Use: No (unknown) Hx Substance Use: No (unknown) Review of Systems Review of Systems: Unobtainable due to endotracheal tube Physical Exam Constitutional: WD/WN, vitals as above + mechanically ventilated sedated ENMT: ett in place Neck: normal visual inspection Respiratory: normal respiratory effort, lungs clear to auscultation Auscultation: + diminished lung sounds Cardiovascular: Rate/Rhythm: regular rate and + tachycardic Gastrointestinal (Abdomen): unable to examine due to prone positioning, fitz drains noted, min serosang fluid Musculoskeletal: Head/Neck/Chest: + head abnormal to inspection, normocephalic and head atraumatic Skin: no rashes, warm and dry Psychiatric: sedated on vent Results & Data Vital Signs (Past 12 Hours) Vital Signs Temp Pulse Pulse Resp BP BP BP 05/15/19 09:10 38.2 C H 144 H 29 H 144/118 H 136/77 05/15/19 09:04 37.5 C 138 H 29 H 139/91 107/62 05/15/19 09:00 37.5 C 138 H 29 H 138/88 85/63 L 05/15/19 08:57 26 H 05/15/19 08:54 37.5 C 138 H 29 H 138/81 109/49 L 05/15/19 08:50 37.5 C 29 H 111/29 L 115/52 L 05/15/19 08:47 37.4 C 29 H 05/15/19 08:39 37.4 C 136 H 29 H 177/102 H 05/15/19 08:34 37.4 C 127 H 29 H 150/73 H 05/15/19 08:29 37.4 C 124 H 29 H 143/101 H 05/15/19 08:27 37.4 C 124 H 19 143/101 H 05/15/19 05:00 108 H 20 116/75 05/15/19 02:48 119 H 20 132/76 05/15/19 01:49 05/15/19 01:41 36.5 C 05/15/19 00:46 133 H 20 127/85 Pulse Ox 05/15/19 09:10 99 05/15/19 09:04 82 L 05/15/19 09:00 80 L 05/15/19 08:57 05/15/19 08:54 76 L 05/15/19 08:50 85 L 05/15/19 08:47 81 L 05/15/19 08:39 74 L 05/15/19 08:34 66 L 05/15/19 08:29 78 L 05/15/19 08:27 66 L 05/15/19 05:00 98 05/15/19 02:48 98 05/15/19 01:49 98 05/15/19 01:41 05/15/19 00:46 97 PG Care Time/CCT Total # of Minutes Spent Total Time Spent with Patient: Total time spent is greater than 50% in coordination of care (as documented) at patient's floor/unit and/or counseling patient:
--- NOTE | 2019-05-15 11:05 | Operative Report ---
DATE OF OPERATION: 05/15/2019 PREOPERATIVE DIAGNOSES: Incarcerated and strangulated umbilical hernia, small bowel perforation, peritonitis, sepsis, and small-bowel obstruction. POSTOPERATIVE DIAGNOSES: Incarcerated and strangulated umbilical hernia, small bowel perforation, peritonitis, sepsis, and small-bowel obstruction, aspiration, sepsis OPERATION: Exploratory laparotomy, partial small bowel resection, ANIL drainage x2. SURGEON: Sandra Gaytan MD ASSEMBLY OPERATOR: Maricel Shaw PA-C ANESTHESIA: General. ESTIMATED BLOOD LOSS: About 30 mL. FINDINGS: Strangulated umbilical hernia which caused the small-bowel obstruction and with small bowel perforation, peritonitis, with full pus in the abdominal cavity. COMPLICATIONS: None. INDICATIONS FOR THE PROCEDURE: This is a 48-year-old female who presented to ED with 2-week history of abdominal pain without bowel movement. The patient had a CT scan diagnosis of strangulated umbilical hernia that caused small-bowel obstruction with small bowel perforation. After that, I talked to the patient and got the patient's history and physical exam, review of the lab and CT scan. I recommended to do the exploratory laparotomy and open repair of umbilical hernia, possible mesh, possible bowel resection, and stoma. I did talk to the patient about the benefits, risks, and alternate procedure. I indicated the risks may include, but not limited, such as bleeding, infection, sepsis, multiple organ failure, even , and anastomosis leak. The patient understands. She signed informed consent. She agreed to proceed with procedure. I answered all questions. DETAILS OF PROCEDURE: We brought the patient to the OR, put the patient in the supine position. The patient received SCDs on bilateral legs to prevent DVT. Also, patient received 3.375 grams Zosyn IV and 500mg flagyl IV for prophylactic antibiotic and just before pt get intubated the patient by anesthesiology, the patient had vomiting, some yellow fluid, and anesthesiologist suctioned the flow from the mouth and the patient got the intubation and the anesthesiologist did bronchoscopy and found that there was some yellow fluid on the lung that he suctioned out with saline flush of the lung. At this moment, patient's vital signs are stable, the heart rate about 110, blood pressure is 115/70, O2 saturation 95%. So the abdomen was appropriately draped in routine sterile fashion. After timeout, I made a midline incision because the patient's abdomen had an incarcerated umbilical hernia, a mass size of about 8 x 10 cm with skin color changed to redness. Once I made midline incision and opened the fascia and reached the abdominal cavity above the hernia, then we found the patient had a lot of pus inside the abdominal cavity. We suctioned the pus. Then we opened the fascia closest to the hernia neck and once we opened the hernia neck, we found the patient had a strangulated umbilical hernia with small bowel on inside the hernia sac with perforation of the bowel which caused by ischemia. 2 perforation hole, size about 1x2cm each, which leak stool. the involved small bowel length is about 6cm. At this moment, I did a small bowel resection. Next, we went down on the mesentery and used 60 BUDDY staple transection on the small bowel distally and the proximal side also I used other 60 mm BUDDY staple transection of the small bowel distally. At this moment, we completely removed the hernia sac with perforated small bowel, resection of small bowel total length is about 10 cm. Then I used 80 mm BUDDY stapler to create 2 small bowel anastomosis side to side and then I used 60 mm TA stapler to close the 2 small bowel opening. Rechecked and anastomosis was intact. No tension. No active bleeding. Then I used 3-0 Vicryl, reinforced the anastomosis interruptedly and then I closed the mesenteric defect by using 3-0 Vicryl interruptedly. At this moment, we used 1 liter of warm normal saline plus 1 gram vancomycin, flushed the abdomen, suctioned, and all the pus came out. Also before resection, we sent the wound culture. Hemostasis was obtained. Then I put one 10 mm ANIL drainage on the right lower quadrant, another 10 mm ANIL drainage on the left lower quadrant area. Then I closed the abdominal fascial layer by using 0 PDS continuous running, closed subcutaneous layer by using 2-0 Vicryl continuous running, closed skin by using staple and the patient tolerated the procedure well and during procedure, the patient's blood pressure was around 110/70, O2 saturation around 90%. After procedure, the patient was transferred to ICU and after procedure, all the instrument, needle, and sponge count were correct x2 at the end of the case. The specimen was sent to pathology and once the patient was transferred to ICU, I did talk to the ICU attending about the OR finding and procedure we did and also after procedure, I did talk to the patient's sister and [id number] about the OR finding and procedure we did and patient had vomiting and aspiration at operative room. and also I did inform them the patient's possibility of developing sepsis, multiple organ failure in the next couple of days and she is in critical condition. They understand and I answered all questions. I attest to the content of the Intraoperative Record and any orders documented therein. Any exceptions are noted below. GLORIA
[2019-05-15 11:21] LABS: Hematocrit (blood only) 42.4 % (37-47); Hemoglobin 14.6 g/dL (12.0-16.0); Mean Corpuscular Hemoglobin 28.5 pg (25-34); Mean Corpuscular Hgb Conc 34.4 g/dL (32-36); Mean Corpuscular Volume 82.7 fL (80-100); Mean Platelet Volume 9.2 fL (7.4-10.4); Platelet Count 290 K/uL (130-400); RDW Coefficient of Variation 12.5 % (11.5-14.5); Red Blood Count 5.13 M/uL (4.2-5.4); White Blood Count 0.65 K/uL (4.8-10.8)
--- NOTE | 2019-05-15 11:36 | Pharmacy Report ---
Pharmacy Abx Dose Short Note - Date of Service May 15, 2019 - Assessment & Plan Assessment * 48 year old F admitted to ICU this AM for sepsis secondary to intra-abdominal infxn (bowel perf secondary to strangulated umbilical hernia), SBO and aspiration event in OR with concern for developing ARDS * Empiric broad-spectrum abx therapy ordered: vancomycin + Zosyn * Pt is now intubated, SVT identified on monitor with BPs stable initially however now trending down and pressors have been ordered * No prior h/o kidney dz, baseline SCr uncertain * MRSA nasal swab negative * BLCXs pending * Surgical cx's also pending Plan Vancomycin * 1750mg IV x 1 loading (~20mg/kg) * Maint dose: 1250mg (~15mg/kg) IV Q 12 hrs * Goal trough: 15-20mcg/mL initially for sepsis * P'kinetic estimates: half-life ~11 hrs, Vd 0.7L/kg * Will check trough level w/ 3rd dose if therapy to continue Zosyn * 3.375gm given in ED at 0430 today * eCrCl > 20cc/min and BMI < 35 * Maint dose: 3.375gm ext-infusion Q 8 hrs Pharmacy will continue to follow and will adjust dose/frequency as necessary. Thank you.
[2019-05-15 11:43] LABS: Basophils # (auto) 0.02 K/uL (0-0.2); Basophils % (auto) 3.1 %; Eosinophils # (auto) 0.02 K/uL (0-0.5); Eosinophils % (auto) 3.1 %; Lymphocytes # (auto) 0.31 K/uL (1.2-3.4); Lymphocytes % (auto) 47.7 %; Monocytes # (auto) 0.01 K/uL (0.11-0.59); Monocytes % (auto) 1.5 %; Neutrophils # (auto) 0.29 K/uL (1.4-6.5); Neutrophils % (auto) 44.6 %
[2019-05-15] MEDS ORDERED: PHARMACY GLYCEMIC MGMT CONSULT PRN (11:45)
[2019-05-15] MEDS ORDERED: ARTIFICIAL TEARS OP OINT 3.5 GM TUBE OP PRN (11:53)
[2019-05-15] MEDS ORDERED: CASPOFUNGIN 70 MG in SODIUM CHLORIDE 0.9% 250 ML IV ONE (12:00)
[2019-05-15] MEDS ORDERED: INSULIN ASPART 100 UNITS/ML 3 ML PEN SC SCH (12:00)
[2019-05-15] MEDS ORDERED: INSULIN GLARGINE SOLOSTAR 100 UNITS/ML 3 ML PEN SC ONE (12:00)
[2019-05-15 12:21] LABS: Creatinine Clr Calc Pharmacy 51.2 ml/min; Est GFR (African American) 46.4; Est GFR (Non-African American) 40.1
[2019-05-15] MEDS ORDERED: CARBOHYDRATES FOR HYPOGLYCEMIA PO PRN (12:30)
[2019-05-15] MEDS ORDERED: GLUCOSE 10 TABS/TUBE PO PRN (12:30)
[2019-05-15] MEDS ORDERED: GLUCOSE 40% GEL 15 GM TUBE PO PRN (12:30)
[2019-05-15] MEDS ORDERED: GLUCAGON FOR INJ 1 MG VIAL IM PRN (12:30)
[2019-05-15] MEDS ORDERED: DEXTROSE 50% 50 ML SYRINGE IV PRN (12:30)
--- NOTE | 2019-05-15 12:34 | Pharmacy Report ---
Pharmacy Glycemic Short Note 2 - Date of Service May 15, 2019 - Glycemic Short BSG Results (Last 24 hours): 05/15/19 05/15/19 05/15/19 02:14 09:09 10:32 Glucose 175 H 208 H POC Glucose 209 H OUTPATIENT ANTIDIABETIC REGIMEN: * No prior dx DM * A1c = ? ASSESSMENT: * Patient admitted to ICU today for incarcerated hernia, perf bowel, peritonitis, sepsis, and acute hypoxemic resp failure following aspiration event * No prior h/o DM, however BSGs are elevated this AM - possibly secondary to multiple physiologic stressors. Will check A1c * Will base initial insulin doses upon pt weight: basal dose based upon "mild" stress until A1c results return and correctional insulin used; rapid acting insulin dose based upon "moderate" stress level PLAN FOR INPATIENT GLYCEMIC CONTROL: * Basal insulin * Lantus 10 units SQ x 1 stat, then BID per the following scale: * 0 units if BSG less than 110 * 8 units if BSG 110-160 * 15 units if BSG above 160 * Bolus insulin * NovoLog per scale Q 4 hrs initially * Goal Range: Low 110 mg/dL - High 140 mg/dL * Correction Factor: 25 mg/dL/unit * Nutritional / Prandial insulin per carb ratio of 1 unit per 9 grams CHO co nsumed PLAN FOR DISCHARGE: * to be determined
[2019-05-15] MEDS: ARTIFICIAL TEARS OP OINT 3.5 GM TUBE OP PRN ×2 (12:47→12:48)
[2019-05-15] MEDS ORDERED: SODIUM BICARB 8.4% INJ 50 MEQ/50 ML SYR ONE ×2 (13:07→15:29)
[2019-05-15] MEDS ORDERED: VASOPRESSIN 20 UNITS in 0.9 % SODIUM CHLORIDE 100 ML IV SCH (13:08)
[2019-05-15 13:34] LABS: iSTAT Arterial Blood Gas HCO3 19 meg/L (19-24); iSTAT Arterial Blood Gas pCO2 60 mmHg (35-46); iSTAT Arterial Blood Gas pO2 71 mmHg (80-95); iSTAT Carbon Dioxide 20 mEq/l (24-31); iSTAT FiO2 70 %; iSTAT Site L Radial
[2019-05-15 13:37] LABS: Calcium 6.9 mg/dl (8.5-10.1); Creatinine Clr Calc Pharmacy 44.8 ml/min; Est GFR (African American) 39.5; Est GFR (Non-African American) 34.1; Potassium 3.6 mmol/L (3.5-5.1)
[2019-05-15 13:54] LABS: Estimated Average Glucose 108 mg/dl; Hemoglobin A1C 5.4 % (4.5-5.6)
[2019-05-15] MEDS ORDERED: PHENYLEPHRINE HCL 100 MG in DEXTROSE 5% 500 ML IV SCH (14:00)
--- NOTE | 2019-05-15 14:41 | XRay Report ---
XR chest 1V portable CLINICAL HISTORY: 48 years-old Female presenting with post central line insertion. TECHNIQUE: Portable supine AP view of the chest was obtained. COMPARISON: 05/15/2019 at 8:35 AM. FINDINGS: Endotracheal tube terminates in the upper thoracic trachea proximal to 6 cm from the emily. Interval placement of a right internal jugular central venous catheter, which terminates in the lower SVC. Re demonstration of the nasogastric tube, which terminates in the fundus, side hole likely also within t he gastric lumen. Cardiomediastinal silhouette normal. Slight interval decrease in patchy dense opacities in the centra l and upper lungs bilaterally. No large effusion or pneumothorax. Osseous structures normal. Upper ab domen normal. IMPRESSION: 1. Appropriately positioned lines and tubes. No pneumothorax. 2. Slight interval decrease in patchy dense central and upper lung predominant bilateral infiltrates . Electronically signed by: Jean Paul Pitts M.D. 05/15/2019 2:40 PM
[2019-05-15] MEDS ORDERED: CALCIUM GLUCONATE 10% 1,000 MG in SODIUM CHLORIDE 0.9% 50 ML IV ONE (14:45)
[2019-05-15 14:58] LABS: iSTAT Arterial Blood Gas HCO3 20 meg/L (19-24); iSTAT Arterial Blood Gas pCO2 63 mmHg (35-46); iSTAT Arterial Blood Gas pH 7.12 (7.35-7.45); iSTAT Arterial Blood Gas pO2 74 mmHg (80-95); iSTAT Carbon Dioxide 22 mEq/l (24-31); iSTAT Site Art Line
--- NOTE | 2019-05-15 15:02 | Discharge Summary ---
Date of Service May 15, 2019 Admission HPI Per Admitting Provider 48 year-old female with no significant medical history and no home medications who presented to emergency department late last evening with complaint of abdominal pain, bulge at umbilicus , inability to have bowel movement for 2 weeks with nausea and vomiting. She had a CT scan of abdomen and pelvis which showed incarcerated umbilical hernia containing small bowel with pneumoperitoneum concerning for perforation of abdominal viscus. Principal Diagnosis Incarcerated umbilical hernia with small bowel Peritonitis Pneumoperitoneum Sepsis Small bowel obstruction Discharge Data Allergies Allergy/AdvReac Type Severity Reaction Status Date / Time No Known Allergies Allergy Unverified 05/15/19 02:07 Consultations 05/15/19 08:33 Consult Medical Sales Associate Routine 05/15/19 08:36 Consult Infectious Diseases Routine 05/15/19 14:20 Burn CD for patient Stat Procedures Performed Operation Date: 05/15/19 05:45 Actual Procedures s Open Umbilical Hernia Repair, - Sandra Gaytan MD p Partial Small Bowel Resection, Exploratory Laparotomy - Sandra Gaytan MD Ordered Studies 05/15/19 01:07 CT abd pelvis oral and IV con Urgent Hospital Course (1) Strangulated umbilical hernia: Patient was taken to operating room emergently from ER by Dr. Gaytan for exploratory laparotomy possible bowel resection possible ostomy. Unfortunately at time of induction patient had vomiting and aspirated gastric contents. Intubation was successful and procedure was continued. Patient was found to have incarcerated umbilical hernia containing necrotic small bowel with small bowel perforation x 2 with purulent peritonitis. Small bowel resection was performed and abdominal washout with 1 liter of saline with vancomycin. Her O2 sats began to drop in the low 80's near completion of procedure and radha was placed. She was transferred to ICU intubated. Her O2 sats continued to drop on maximum ventilation support and retail beauty specialist recommended prone to help with oxygenation. Medical Sales Associate discussed with family option of transfer to tertiary center for possible ECMO. [facility] for transfer which she was accepted. (2) Peritonitis: (3) Bowel perforation: Total Time Total Time Spent Total Time Spent (In Minutes): 15 Total Time Includes: Examination of the Patient, Discharge Planning and Medication Reconciliation Discharge Plan Discharge Items Patient Disposition: Transfer Acute Care Hospital Reason For Visit: ABDOMINAL PAIN,VOMITING FOR A WK,FEEL LIKE PASS OU Discharge Diagnosis: s/p exploratory laparotomy with bowel resection perioperative aspiration prior to induction ARDS currently intubated Condition on Discharge: Critical Activity: Per Instructions section Non-emergency contact: Primary Care Provider Call non-emergency contact if: you have any medication questions, your pain is worsening, your pain is concerning for you, your temperature is above 101, your wound has increased redness, your wound has increased drainage and your wound pain has increased Follow-up/Referrals: PCP,NO [Primary Care Provider] - Diet: Low Fiber Addtl Attending Provider Instructions: Surgical discharge instructions however you will have discharge instructions from [facility]: NO heavy lifting over 10 pounds for 6 weeks No strenuous activity until cleared by surgeon No submerging incision underwater for 2 [address] while taking narcotic pain medication or until you are pain free You should follow-up with Dr. Gaytan (General Surgeon) 1 week after you are discharged from hospital. Please call office at [phone] to make an appointment. Pending Studies at Discharge: Yes (surgical pathology) Stand-Alone Forms: Call Back Authorization, [facility] Skilled Items Patient informed of condition?: No (family informed, patient intubated) DNR: No Discharge Level of Care: Other Communicable Disease: No Discharge Prognosis: Other Lines: Peripheral IV Urinary Catheter: Yes Medications and DC Order Prescriptions: No Action No Known Home Medications RF: 0 Discharge Orders: Discharge Order (Routine); Ordered 05/15/19 Ordered By: Maricel Shaw Admission Data Admit Date/Time: 05/15/19 08:33 Attending Provider: Sandra Gaytan Admit Provider: Sandra Gaytan Primary Care Provider: PCP,NO Other Providers: Ambrose Britton ; Michael Au Other Interventions: Discharge Summary Assessment (RN) Last Done: 05/15/19 15:04 DC Date/Time DO NOT enter until pt leaves facility: 05/15/19 17:20
--- NOTE | 2019-05-15 15:06 | Procedure Note ---
Procedure Note Date of Service May 15, 2019 Note INTERNAL JUGULAR CENTRAL LINE PROCEDURE NOTE: Procedure: Internal Jugular Central Line Placement Indication: Central Drug Administration, Poor Venous Access, Multiple Lab Draws Necessary, etc. Anesthesia: Continuous fentanyl and propofol none/no lidocaine 1% Consent was signed and placed on the chart prior to procedure. Indication, risks, and benefits were explained at length. A time-out was completed verifying correct patient, procedure, site, positioning, and implants(s) or special equipment if applicable. Patients right neck was cleansed and draped in the typical sterile fashion using Chloraprep. The Internal Jugular Vein and Carotid Artery were identified using ultrasound. The Internal Jugular vein was cannulated under direct ultrasound guidance using an introducer needle on a syringe. Good venous blood return was maintained prior to removal of syringe from introducer needle. Using Seldinger Technique, a guide wire was advanced through the introducer needle without resistance. The introducer needle was removed and ultrasound images were obtained of the guide wire within the Internal Jugular Vein and saved to the patients medical record. A small incision was made in penetrating fashion at the guide wire insertion site utilizing an 11 blade scalpel. The dilator was advanced to the vessel without resistance. The dilator was exchanged for the triple lumen catheter which was advanced into the vessel without resistance. The guide wire was removed intact from the catheter without issue. Claves were placed on each catheter tip with confirmation of good blood flow from each lumen. Each port was easily flushed with sterile saline. The catheter was placed at 17 cm and sut[address] in place. BioPatch was applied to the catheter and a sterile Tegaderm dressing was applied over the catheter with careful attention to sterility. Patient tolerated procedure well. No immediate complications were met. Post procedure x-ray was completed, placement was appropriate and no pneumothorax was noted. Images obtained are saved for permanent record Procedural Ultrasound Guidance: Procedure Date: 05/15/2019 Indication: Septic shock Artery AND Vein visualized: Yes Compressible Vein: Yes Guidewire or Short Catheter seen in vein prior to dilation: Yes Coding CPT Codes Tubes, Drains, and Vasc Access - Tubes, Drains, and Vasc Access: [id number] Place cat heter in vein superior or inferior vena cava ([id number])
[2019-05-15] MEDS ORDERED: HYDROCORTISONE SOD SUCCINATE 100 MG/2 ML VIAL IM STA (15:10)
[2019-05-15] MEDS ORDERED: NOREPINEPHRINE BIT INJ 8 MG in DEXTROSE 5% 500 ML IV SCH (15:10)
[2019-05-15] MEDS ORDERED: HYDROCORTISONE SOD 100 MG in SYRINGE 0 ML IV ONE (15:30)
[2019-05-15] MEDS ORDERED: VANCOMYCIN HCL 1,250 MG in SODIUM CHLORIDE 0.9% 250 ML IV SCH (22:00)
[2019-05-16] MEDS ORDERED: ENOXAPARIN INJ 40 MG/0.4 ML SYR SQ SCH (09:00)
--- NOTE | 2019-05-16 10:19 | Communication Note ---
Date of Service: May 16, 2019
[2019-05-16] MEDS ORDERED: CASPOFUNGIN 50 MG in SODIUM CHLORIDE 0.9% 250 ML IV SCH (12:00)
== END 2019-05-15 17:20 | disposition short-term general hospital (02) | DRG 329 ==
LOC: ED 00:39 → OR 05:30 → 1E 08:33